=== PATIENT | male | born 1965 | race Caucasian/White ===

== ENCOUNTER 2020-12-06 13:55 | Emergency (ER) | payer OTHER, SELFPAY ==
[2020-12-06 14:18] VITALS: BP 121/74; PULSE 115; RESP 18; TEMP 37.7; O2SAT 96; BMI 37.5
--- NOTE | 2020-12-06 14:57 | CTR_ITS ---
PROCEDURE INFORMATION: Exam: CT Abdomen And Pelvis With Contrast Exam date and time: 12/06/2020 3:31 PM Age: 55 years old Clinical indication: Abdominal pain; Flank; Right; Prior surgery; Surgery type: Hernia TECHNIQUE: Imaging protocol: Computed tomography of the abdomen and pelvis with contrast. Radiation optimization: All CT scans at this facility use at least one of these dose optimization techniques: automated exposure control; mA and/or kV adjustment per patient size (includes targeted exams where dose is matched to clinical indication); or iterative reconstruction. Contrast material: OMNI 300; Contrast volume: 95 ml; Contrast route: INTRAVENOUS (IV); COMPARISON: No relevant prior studies available. RADIATION DOSE METRICS: Total DLP (mGy-cm): FINDINGS: Liver: Several tiny subcentimeter low-attenuation liver lesions are too small to confidently characterize. Mild nodular contour of the liver capsular surface. Gallbladder and bile ducts: Normal. No calcified stones. No ductal dilation. Pancreas: Normal. No ductal dilation. Spleen: Moderate splenomegaly without focal splenic mass. Adrenal glands: Normal. No mass. Kidneys and ureters: Nonobstructing right kidney stone. Negative for hydronephrosis. Stomach and bowel: Unremarkable. No obstruction. No mucosal thickening. Appendix: No evidence of appendicitis. Intraperitoneal space: Unremarkable. No free air. No significant fluid collection. Vasculature: Patent. No aneurysm. No bleeding. No dissection. Portal venous system patent. Mesenteric venous system patent. Lymph nodes: Unremarkable. No enlarged lymph nodes. Urinary bladder: Unremarkable as visualized. Reproductive: Mild prostate gland enlargement with prostate gland calcifications. Bones/joints: Grade 2 L5-S1 spondylolisthesis secondary to L5 pars defects. Severe L5-S1 disc disease. No acute fractures. No focal suspicious bone lesion. Mild superior endplate concavity of L5. Soft tissues: Small umbilical hernia contains mesenteric fat. CT/CT abdomen pelvis w con* [id number] IMPRESSION: 1. No acute findings in the abdomen or pelvis. 2. Nonobstructing right renal stone. 3. Moderate splenomegaly. Mildly nodular capsular surface of liver raises question of underlying cirrhosis. 4. Small fat containing umbilical hernia. 5. Tiny liver lesions which are too small to confidently characterize; favor benign lesions such as cysts or hemangiomas. Radiation Dose CTDIVOL = (mGy): DLP = 2015.78 (mGy-cm)
--- NOTE | 2020-12-06 15:17 | W.ED.FEVER ---
HPI - Fever General: Chief Complaint: Fever Stated Complaint: RGHT KIDNEY PAINS HIGH FEVER Time Seen by Provider: 12/06/20 14:54 Source: patient and family Mode of arrival: ambulatory Limitations: no limitations History of Present Illness: HPI Narrative: Preston is a very nice 55-year-old male comes in complaining of right flank pain and right lower quadrant pain. His symptoms started on Monday, 3 days ago and have gotten progressively worse since. He states the pain feels somewhat like a kidney stone he had in the past but not exactly the same. He denies any blood in his urine or dysuria. He has had a fever at home up to 102.9 but is not had a fever today. He is nauseated but not vomited. He denies any hematuria. Patient denies any chest pain, cough or shortness of breath. The patient states that he has a history of lymphoma but he is in remission as of 1 year ago. He denies other complaints or concerns patient's overall he feels very poorly. Associated symptoms: Reports abdominal pain, flank pain, chills and nausea; Deny chest pain, confusion, diarrhea, dysuria, extremity pain, headache(s) or vomiting Review of Systems Const: Reports: fever(s), chills, body aches, fatigue and malaise; Denies: diaphoresis Eyes: Denies: change in vision, blurry vision, photophobia, eye discomfort, eye discharge, eye redness or yellow eyes ENMT: Denies: throat pain, odynophagia, hoarseness, swelling of lips/tongue, ear or mastoid pain, ear discharge, change in hearing or nasal discharge Card: Denies: chest pain, palpitations, irregular heart rhythm, edema, lightheadedness, syncope, pre-syncope, dyspnea on exertion or orthopnea Resp: Denies: dyspnea, productive cough, non-productive cough, wheezing, hemoptysis or chest congestion GI: Reports: abdominal pain and nausea; Denies: vomiting, hematemesis, coffee ground emesis, heartburn, diarrhea, constipation, GI cramping, hematochezia or melena : Reports: flank pain; Denies: dysuria, urinary frequency, urinary urgency or hematuria Musc: Denies: neck pain, back pain, extremity pain, extremity swelling, joint pain, joint swelling, joint redness, joint warmth or joint stiffness Skin/Breast: Denies: rash, pruritus, erythema, skin pain or skin tenderness Neuro: Denies: headache(s), numbness in extremities, weakness in extremities, sensory changes, lack of coordination, difficulty walking, dizziness, vertigo, confusion, Slurred speech present or seizure-like activity Omar/Lymph: Denies: easy bruising, easy bleeding, petechiae, purpura or enlarged lymph nodes All/Imm: Denies: urticaria, throat swelling, tongue swelling, facial swelling or acute wheezing PFSH ED PFSH: Medical History Kidney stones Lymphoma in remission Physical Exam Const: COMMON NORMALS: no acute distress, patient oriented x3, no limitations and alert GENERAL APPEARANCE: cooperative HENMT: COMMON NORMALS: normocephalic, atraumatic, external ears normal, EAC's normal and Normal external nose present HEAD & SCALP: normal to inspection, normocephalic and atraumatic FACE & SINUS: normal facial exam and face symmetric NOSE: Normal external nose present and Normal nares present EXTERNAL EAR: Yes external ears normal EXTERNAL AUDITORY CANAL: EAC's normal MOUTH: Normal oral and palatal mucosa present, lip normal and tongue normal Eye: COMMON NORMALS: Equal, round and reactive pupils present and conjunctivae normal GENERAL EYE: appearance normal, both eyes and all related structures ALIGNMENT: Yes alignment normal PERIORBITAL: periorbital findings normal EYELID: eyelids normal CONJUNCTIVA: Yes conjunctivae normal SCLERA: sclerae normal PUPIL: Yes Equal, round and reactive pupils present Neck/C-Spine: COMMON NORMALS: full ROM, no lymphadenopathy, supple, no meningeal signs and no JVD GENERAL: Yes normal visual inspection and Yes trachea midline Chest: COMMONS NORMALS: normal inspection of the chest and normal palpation of entire chest wall Resp: COMMON NORMALS: normal respiratory effort, No retractions, No use of accessory muscles and clear to auscultation bilaterally EFFORT & INSPECTION: Yes able to speak in complete sentences and Yes symmetric chest movement AUSCULTATION: clear to auscultation bilaterally, no crackles, no rales, no rhonchi and no wheezes Cardio: COMMON NORMALS: no JVD, regular rate, regular rhythm, S1 normal heart sound present and S2 normal heart sound present RATE: regular rate RHYTHM: regular rhythm HEART SOUNDS: S1 normal heart sound present, S2 normal heart sound present, no click, no gallops, no murmurs and no rubs GI: COMMON NORMALS: Soft to palpation and No hepatosplenomegaly present PALPATION: Yes Soft to palpation, No Tenderness to palpation present (GI), No Guarding due to palpation present (GI), No Rigid due to palpation, Yes No hepatosplenomegaly present, No Hernia present, No Palpable mass present and No Pulsatile mass present : COMMON NORMALS: Yes no CVA tenderness BLADDER/KIDNEY EXAM: Yes no CVA tenderness Back/Pelvis: COMMON NORMALS: no CVA tenderness, thoracic and lumbar spine normal to inspection, no thoracic nor lumbar tenderness and thoraco-lumbar ROM normal Extremity: COMMON NORMALS: normal to inspection, full ROM, capillary refill normal, no joint enlargement, no clubbing, cyanosis or edema and no calf tenderness Neuro: COMMON NORMALS: patient oriented x3, CN's II-XII intact bilaterally, moves all extremities, no focal motor deficits and no sensory deficits noted SENSORIUM/ORIENTATION: Yes alert MENINGEAL SIGNS: Yes no meningeal signs SPEECH: speech normal Psych: COMMON NORMALS: mental status grossly normal, Normal thought process present, cooperative, normal affect, speech normal and activity/motor behavior normal SPEECH: Yes normal speech THOUGHT PROCESS: Normal thought process present Skin: COMMON NORMALS: no rashes or lesions noted, turgor normal, no jaundice, no petechiae and no mottling GENERAL SKIN EXAM: no rashes or lesions noted and turgor normal Course Vital Signs: Vital signs: Vital Signs Temperature 99.8 F H 12/06/20 14:18 Pulse Rate 115 H 12/06/20 14:18 Respiratory Rate 18 12/06/20 16:21 Blood Pressure 121/74 12/06/20 14:18 Pulse Oximetry 96 12/06/20 14:18 MDM - Fever MDM Narrative: Medical decision making narrative: 1654 -patient CT scan is unremarkable. I did discuss the findings directly with the radiologist who states that there is no evidence of appendicitis. The patient has an exam that is not concerning for peritonitis. He is not had a fever here although he has had at home. He is feeling better after the IV fluids I have given him and his tachycardia has resolved. His lactate is normal. His white count is normal. I see no sign of acute life-threatening infection at this time but based upon the patient's history and risk factors I am concerned that he could be developing a more severe illness. He declines observation in the hospital as I have offered him but would rather go home. I will place him on empiric antibiotics but he understands this may increase his risk of C. difficile but he still would like to go ahead with this. He is concerned as he has been so ill in the past and he understands at this time I am uncertain what we may be treating although an occult bowel infection is a possibility. He is going to follow-up with his oncologist on Monday for routine checkup and will review all this with him on that day. At this time the patient is feeling much better and is ready to go home. Lab Data: Labs: Lab Results 12/06/20 12/06/20 12/06/20 Range/Units 15:28 15:28 15:28 WBC 4.0 (4.0-10.0) 10^3/ uL RBC 4.98 (4.1-5.3) 10^6/u L Hgb 14.5 (11.7-16.6) g/dL Hct 42.3 (42.0-52.0) % MCV 84.9 (80-94) fL MCH 29.1 (28.0-34.0) pg MCHC 34.3 (30.0-36.0) g/dL RDW 14.3 (12.1-15.1) % Plt Count 58 L (130-400) 10^3/c mm MPV 11.0 H (7.4-10.4) fL Neut % (Auto) 68.6 % Lymph % (Auto) 17.5 % [place] % (Auto) 13.0 % Eos % (Auto) 0.3 % Baso % (Auto) 0.3 % Neut # (Auto) 2.74 (1.8-7.7) 10^3/u L Lymph # (Auto) 0.7 L (0.8-4.8) 10^3/u L [place] # (Auto) 0.5 (0.2-0.9) 10^3/u L Eos # (Auto) 0.0 (0.0-0.8) 10^3/u L Baso # (Auto) 0.0 (0.0-0.1) 10^3/u L Nucleated RBC % (a uto) 0 % Nucleated RBCs # 0.0 /100WBC Sodium 135 L (136-145) mmol/L Potassium 4.4 (3.5-5.1) mmol/L Chloride 102 (98-107) mmol/L Carbon Dioxide 21 L (22-29) mmol/L Anion Gap 16.4 (5-19) BUN 14 (6-20) mg/dL Creatinine 0.8 (0.7-1.2) mg/dL GFR Calculation 100.0 (90-130) mL/min Glucose 103 (65-115) mg/dL Calculated Osmolal ity 281 L (285-295) mOsm/k g Lactic Acid 1.5 (0.5-2.2) mmol/L Calcium 8.4 L (8.5-10.5) mg/dL Magnesium 2.0 (1.7-2.3) mg/dL Total Bilirubin 1.0 (0.15-1.2) mg/dL AST 62 H (0-40) U/L ALT 59 H (0-41) U/L Alkaline Phosphata se 131 H (40-130) IU/L Total Protein 6.4 L (6.6-8.7) g/dL Albumin 3.7 (3.5-5.2) g/dL Globulin 2.7 (1.3-4.6) g/dL Lipase 49 (13-60) U/L Urine Color (Yellow) Urine Appearance (CLEAR) Urine pH (5-7) Ur Specific Gravit y (1.005-1.030) Urine Protein (Negative) Urine Glucose (UA) (Normal) Urine Ketones (Negative) Urine Blood (Negative) Urine Nitrate (Negative) Urine Bilirubin (Negative) Urine Urobilinogen (Negative) mg/dL Ur Leukocyte Cecelia ase (Negative) Urine RBC (0-2) /hpf Urine WBC (0-5) /hpf Ur Squamous Epith Cells (0-5) /hpf Amorphous Sediment Urine Bacteria (NONE) /hpf Urine Mucus /hpf 12/06/20 Range/Units 15:28 WBC (4.0-10.0) 10^3/ uL RBC (4.1-5.3) 10^6/u L Hgb (11.7-16.6) g/dL Hct (42.0-52.0) % MCV (80-94) fL MCH (28.0-34.0) pg MCHC (30.0-36.0) g/dL RDW (12.1-15.1) % Plt Count (130-400) 10^3/c mm MPV (7.4-10.4) fL Neut % (Auto) % Lymph % (Auto) % [place] % (Auto) % Eos % (Auto) % Baso % (Auto) % Neut # (Auto) (1.8-7.7) 10^3/u L Lymph # (Auto) (0.8-4.8) 10^3/u L [place] # (Auto) (0.2-0.9) 10^3/u L Eos # (Auto) (0.0-0.8) 10^3/u L Baso # (Auto) (0.0-0.1) 10^3/u L Nucleated RBC % (a uto) % Nucleated RBCs # /100WBC Sodium (136-145) mmol/L Potassium (3.5-5.1) mmol/L Chloride (98-107) mmol/L Carbon Dioxide (22-29) mmol/L Anion Gap (5-19) BUN (6-20) mg/dL Creatinine (0.7-1.2) mg/dL GFR Calculation (90-130) mL/min Glucose (65-115) mg/dL Calculated Osmolal ity (285-295) mOsm/k g Lactic Acid (0.5-2.2) mmol/L Calcium (8.5-10.5) mg/dL Magnesium (1.7-2.3) mg/dL Total Bilirubin (0.15-1.2) mg/dL AST (0-40) U/L ALT (0-41) U/L Alkaline Phosphata se (40-130) IU/L Total Protein (6.6-8.7) g/dL Albumin (3.5-5.2) g/dL Globulin (1.3-4.6) g/dL Lipase (13-60) U/L Urine Color Dark yellow (Yellow) Urine Appearance Clear (CLEAR) Urine pH 6 (5-7) Ur Specific Gravit y 1.025 (1.005-1.030) Urine Protein Trace (Negative) Urine Glucose (UA) Norm (Normal) Urine Ketones 1+ H (Negative) Urine Blood 2+ H (Negative) Urine Nitrate Negative (Negative) Urine Bilirubin Neg (Negative) Urine Urobilinogen 8 H (Negative) mg/dL Ur Leukocyte Cecelia ase Negative (Negative) Urine RBC 0-4 H (0-2) /hpf Urine WBC None (0-5) /hpf Ur Squamous Epith Cells None (0-5) /hpf Amorphous Sediment Not Reportable Urine Bacteria Trace (NONE) /hpf Urine Mucus 2+ /hpf Imaging Data^: CT Abd/Pel: Radiologist's impression: [id number] [id number] [address] Scan Report Signed with Addenda Patient: Preston Cope Unit #: [id number] : 1965 Age/Sex: 55 / M ADM Date: 12/06/20 Loc: ER Room/Bed: Attending Dr: Ordering Provider/Ordering MD: Bria Garcia DO Date of Service: 12/06/20 Procedure(s): CT abdomen pelvis w con* [id number] Accession Number(s): [id number] Report Number: [id number]/CT abdomen pelvis w con* [id number] Findings were discussed with Bria Garcia at 12/06/2020 4:39 PM CDT. The appendix is visible in the right lower quadrant the abdomen. It has normal diameter. There is no abnormal enhancement features. There is no focal inflammatory soft tissue changes in the right lower quadrant. Radiation Dose CTDIVOL = (mGy): DLP = 2016.78 (mGy-cm) Addendum Dictated By: Forest Bland Addendum Signed By: Forest Bland Signed Date/Time: 12/06/20 1641 Addendum Cosigned By: PROCEDURE INFORMATION: Exam: CT Abdomen And Pelvis With Contrast Exam date and time: 12/06/2020 3:31 PM Age: 55 years old Clinical indication: Abdominal pain; Flank; Right; Prior surgery; Surgery type: Hernia TECHNIQUE: Imaging protocol: Computed tomography of the abdomen and pelvis with contrast. Radiation optimization: All CT scans at this facility use at least one of these dose optimization techniques: automated exposure control; mA and/or kV adjustment per patient size (includes targeted exams where dose is matched to clinical indication); or iterative reconstruction. Contrast material: OMNI 300; Contrast volume: 95 ml; Contrast route: INTRAVENOUS (IV); COMPARISON: No relevant prior studies available. RADIATION DOSE METRICS: Total DLP (mGy-cm): 2015.78 FINDINGS: Liver: Several tiny subcentimeter low-attenuation liver lesions are too small to confidently characterize. Mild nodular contour of the liver capsular surface. Gallbladder and bile ducts: Normal. No calcified stones. No ductal dilation. Pancreas: Normal. No ductal dilation. Spleen: Moderate splenomegaly without focal splenic mass. Adrenal glands: Normal. No mass. Kidneys and ureters: Nonobstructing right kidney stone. Negative for hydronephrosis. Stomach and bowel: Unremarkable. No obstruction. No mucosal thickening. Appendix: No evidence of appendicitis. Intraperitoneal space: Unremarkable. No free air. No significant fluid collection. Vasculature: Patent. No aneurysm. No bleeding. No dissection. Portal venous system patent. Mesenteric venous system patent. Lymph nodes: Unremarkable. No enlarged lymph nodes. Urinary bladder: Unremarkable as visualized. Reproductive: Mild prostate gland enlargement with prostate gland calcifications. Bones/joints: Grade 2 L5-S1 spondylolisthesis secondary to L5 pars defects. Severe L5-S1 disc disease. No acute fractures. No focal suspicious bone lesion. Mild superior endplate concavity of L5. Soft tissues: Small umbilical hernia contains mesenteric fat. CT/CT abdomen pelvis w con* [id number] IMPRESSION: 1. No acute findings in the abdomen or pelvis. 2. Nonobstructing right renal stone. 3. Moderate splenomegaly. Mildly nodular capsular surface of liver raises question of underlying cirrhosis. 4. Small fat containing umbilical hernia. 5. Tiny liver lesions which are too small to confidently characterize; favor benign lesions such as cysts or hemangiomas. Radiation Dose CTDIVOL = (mGy): DLP = 2016.78 (mGy-cm) Dictated By: Forest Bland Signed By: Forest Bland Signed Date/Time: 12/06/201607 DD/ 07 Discharge Plan Discharge Patient Disposition: Home Clinical Impression: Fever of unknown origin, Abdominal pain of unknown cause Condition: Stable Prescriptions: New Augmentin 875-125 mg tablet 1 tab PO BID 10 Days Qty: 20 RF: 0 No Action Active B Complex 1 tab PO DAILY RF: 0 fluconazole 200 mg tablet 200 mg PO BEDTIME RF: 0 Tylenol Extra Strength 500 mg Tablet 1,000 mg PO PRN RF: 0 tamsulosin 0.4 mg capsule 0.4 mg PO BEDTIME RF: 0 gabapentin 300 mg capsule 300 mg PO BID RF: 0 Discharge Orders: Discharge ED (Routine); Ordered 12/06/20 Ordered By: Bria Garcia Discharge Diet: Usual diet Discharge Activity: Increase activity as tolerated Patient Instructions: Abdominal Pain (ED) Activity Restrictions/Additional Instructions: Please return to the ER immediately for any of the signs or symptoms listed on your discharge instruction sheets, worsening/changing of your symptoms, you are not getting better as quickly as expected, or for ANY other cause or concerns. A cause of your fever and abdominal pain has not been found. It is possible that you are still developing appendicitis or another severe even a life-threatening cause for your pain that has not been discovered yet. If you become weak, have return of your fever, he began to vomit, you have diarrhea, blood in your stools, or your abdominal pain gets worse please return to the ER immediately for recheck. Take the antibiotics as I have prescribed to you and be certain to follow-up with your doctor on Monday as scheduled. Coding Level of Care Code ED Denture Contour Wire Specialist for Hai Fwd Exam Comprehensive
[2020-12-06 15:41] LABS: Basophils % 0.3 %; Eosinophils % 0.3 %; Hematocrit 42.3 % (42.0-52.0); Hemoglobin 14.5 g/dL (11.7-16.6); Lymphocytes # 0.7 10^3/uL (0.8-4.8); Lymphocytes % 17.5 %; Mean Corpuscular HGB Conc 34.3 g/dL (30.0-36.0); Mean Corpuscular Hemoglobin 29.1 pg (28.0-34.0); Mean Corpuscular Volume 84.9 fL (80-94); Monocytes # 0.5 10^3/uL (0.2-0.9); Neutrophils # 2.74 10^3/uL (1.8-7.7); Neutrophils % 68.6 %; Nucleated Red Blood Cells % 0 %; Platelet Count 58 10^3/cmm (130-400); Red Blood Count 4.98 10^6/uL (4.1-5.3); Red Cell Distribution Width 14.3 % (12.1-15.1)
[2020-12-06] MEDS: iohexol 300 mg/mL 100 mL Btl IV (15:44)
[2020-12-06 16:03] LABS: Alanine Aminotransferase 59 U/L (0-41); Albumin Level 3.7 g/dL (3.5-5.2); Alkaline Phosphatase 131 IU/L (40-130); Anion Gap 16.4 (5-19); Aspartate Amino Transferase 62 U/L (0-40); Blood Urea Nitrogen 14 mg/dL (6-20); Calcium 8.4 mg/dL (8.5-10.5); Carbon Dioxide 21 mmol/L (22-29); Chloride 102 mmol/L (98-107); Globulin 2.7 g/dL (1.3-4.6); Glucose 103 mg/dL (65-115); Lactic Sepsis W/Reflex 1.5 mmol/L (0.5-2.2); Lipase 49 U/L (13-60); Osmolality Calculated 281 mOsm/kg (285-295); Potassium 4.4 mmol/L (3.5-5.1); Sodium 135 mmol/L (136-145); Total Protein 6.4 g/dL (6.6-8.7)
[2020-12-06 16:04] LABS: Add Urine Microscopic? YES; Bilirubin Urine Neg (Negative); Blood Urine 2+ (Negative); Glucose Urine UA Norm (Normal); Ketones Urine 1+ (Negative); Leukocyte Esterase Urine Negative (Negative); Nitrate Urine Negative (Negative); Protein Urine Trace (Negative); Specific Gravity, Urine 1.025 (1.005-1.030); Urine Appearance Clear (CLEAR); Urine Color Dark Yellow (Yellow); Urobilinogen Urine 8 mg/dL (Negative); pH Urine 6 (5-7)
[2020-12-06 16:10] LABS: RBC Urine 0-4 /hpf (0-2)
[2020-12-06 16:11] LABS: Add Urine Culture? No; Bacteria Urine TRACE /hpf; Mucus Urine 2+ /hpf
[2020-12-06 16:21] VITALS: RESP 18
[2020-12-06] MEDS: morphine 4 mg/mL SDV 1 mL IVP (16:21)
[2020-12-06] MEDS: ondansetron 2 mg/ML SDV 2 mL 4 MG IVP (16:22)
[2020-12-06] MEDS: sodium chloride 0.9% 1,000 ML 999 ML IV ×2 (16:23→17:40)
--- NOTE | 2020-12-06 16:41 | PC.PHAR ---
PT STATES HE HAS BEEN OFF OF ELIQUIS FOR A COUPLE MONTHS-
[2020-12-06] MEDS: cefTRIAXone 1,000 MG in sodium chloride 0.9% (plus) 50 ML 100 MG IV (17:20)
[2020-12-06] MEDS: piperacillin-tazobactam 3.375 GM in sodium chloride 0.9% (plus) 50 ML IV (17:30)
[2020-12-06 18:38] VITALS: BP 112/72; PULSE 92; O2SAT 94
[2020-12-06 18:39] VITALS: BP 112/72; PULSE 92; RESP 18; O2SAT 94
== END 2020-12-06 18:40 | disposition home or self-care (01) ==
PROVIDERS: Nurse Practitioner Family; Emergency Provider Emergency Medicine
DX: R50.9 Fever, unspecified (principal); R10.9 Unspecified abdominal pain; Z87.442 Personal history of urinary calculi; Z85.72 Personal history of non-Hodgkin lymphomas
CPT/HCPCS: 74177; 80053; 81001; 83605; 83690; 83735; 85025; 96361; 96365; 96375; 99284; J0696; J2270; J2405; J2543; J7030; Q9967

== ENCOUNTER 2021-11-22 03:57 | Emergency (ER) | payer OTHER, SELFPAY ==
[2021-11-22 04:00] VITALS: BP 150/89; PULSE 106; RESP 17; TEMP 36.3; O2SAT 96; BMI 37.5
--- NOTE | 2021-11-22 04:49 | W.ED.GENADLT ---
HPI - General Adult General: Chief complaint: General Medical Stated complaint: blocked cath Time Seen by Provider: 11/22/21 04:15 Source: patient History of Present Illness: 56-year-old male who has had a Redman catheter since surgery last week. He says it is to be DC'd on Monday. He awoke with pressure in his belly, and noted that he had very little drainage. He had clogged the catheter once yesterday, and flushed it out without much success. He has had to come in for a block Redman prior, and did not want to experience that pain again. No fever. Onset (ago): hour(s) Location: pelvis Radiation: non-radiation Severity: moderate Quality: aching Pain Consistency: constant Exacerbating factors: none Associated symptoms: Reports nausea; Deny chest pain, confusion, cough, dyspnea, fevers/chills, palpitations, short of breath or vomiting Treatments prior to arrival: other Review of Systems Const: Denies: fever(s) Card: Denies: chest pain or palpitations Resp: Denies: dyspnea or productive cough GI: Reports: nausea; Denies: vomiting : Reports: difficulty urinating; Denies: flank pain Musc: Denies: back pain Neuro: Denies: confusion PFSH ED PFSH: Medical History Kidney stones Lymphoma in remission Physical Exam Const: GENERAL APPEARANCE: cooperative; not frail appearing HENMT: COMMON NORMALS: normocephalic HEAD & SCALP: normocephalic Eye: COMMON NORMALS: Equal, round and reactive pupils present and EOMs intact bilaterally PUPIL: Yes Equal, round and reactive pupils present Chest: COMMONS NORMALS: normal inspection of the chest Cardio: COMMON NORMALS: regular rate and regular rhythm RATE: regular rate RHYTHM: regular rhythm GI: COMMON NORMALS: Soft to palpation INSPECTION: Yes abdominal distension (Mild) PALPATION: Yes Soft to palpation and Yes Tenderness to palpation present (GI) (Mild suprapubic) : COMMON NORMALS: Yes no CVA tenderness BLADDER/KIDNEY EXAM: Yes no CVA tenderness Back/Pelvis: COMMON NORMALS: no CVA tenderness Extremity: GENERAL: Yes edema Neuro: ARIS COMA SCALE: document GCS findings Aris coma scale eye opening: Spontaneous Aris coma scale verbal response: Orientated Donnellson coma scale motor response: Obey commands Aris coma scale total score: 15 Skin: COMMON NORMALS: no rashes or lesions noted GENERAL SKIN EXAM: no rashes or lesions noted Course Vital Signs: Vital signs: Vital Signs Temperature 97.4 F L 11/22/21 04:00 Pulse Rate 106 H 11/22/21 04:00 Respiratory Rate 16 11/22/21 04:51 Blood Pressure 115/83 11/22/21 04:51 Pulse Oximetry 94 11/22/21 04:51 [facility] - General Adult Medical Decision Making 56-year-old male with a Redman catheter problem. Attempt was made to flush the catheter, to no avail. Redman was removed, it was found to be caked with calcium, and a clot. New Redman placed with immediate return of 1400 mL of yellow urine. Urine is in lab. Lab Data Laboratory Results Urine Color Yellow (Yellow) 11/22/21 04:45 Urine Appearance Sl hazy (CLEAR) 11/22/21 04:45 Urine pH 6 (5-7) 11/22/21 04:45 Ur Specific Viola 1.025 (1.005-1.030) 11/22/21 04:45 Urine Protein Neg (Negative) 11/22/21 04:45 Urine Glucose (UA) Norm (Normal) 11/22/21 04:45 Urine Ketones Negative (Negative) 11/22/21 04:45 Urine Blood 3+ (Negative) H 11/22/21 04:45 Urine Nitrate Negative (Negative) 11/22/21 04:45 Urine Bilirubin Neg (Negative) 11/22/21 04:45 Urine Urobilinogen Norm mg/dL (Negative) 11/22/21 04:45 Ur Leukocyte Esterase Negative (Negative) 11/22/21 04:45 Urine RBC >100 /hpf (0-2) H 11/22/21 04:45 Urine WBC 0-4 /hpf (0-5) H 11/22/21 04:45 Ur Squamous Epith Cells 0-4 /hpf (0-5) H 11/22/21 04:45 Amorphous Sediment Not Reportable 11/22/21 04:45 Urine Bacteria 1+ /hpf (NONE) H 11/22/21 04:45 Discharge Plan Discharge Patient Disposition: Home Clinical Impression: Complication of Redman catheter Qualifiers: Encounter type: initial encounter Qualified Code(s): T83.9XXA - Unspecified complication of genitourinary prosthetic device, implant and graft, initial encounter Condition: Stable Prescriptions: No Action Active B Complex 1 tab PO DAILY 0RF fluconazole 200 mg tablet 200 mg PO BEDTIME 0RF Tylenol Extra Strength 500 mg Tablet 1,000 mg PO PRN 0RF tamsulosin 0.4 mg capsule 0.4 mg PO BEDTIME 0RF gabapentin 300 mg capsule 300 mg PO BID 0RF Discharge Orders: Discharge ED (Routine); Ordered 11/22/21 Ordered By: Scott Riley Discharge Diet: Advance as tolerated Discharge Activity: Increase activity as tolerated Patient Instructions: Urinary Retention in Men (ED), Redman Catheter Placement and Care (ED) Activity Restrictions/Additional Instructions: Return for fever, worsening pain, blood in the catheter, mental status changes, any other concerning symptoms. Coding Level of Care Code ED Multisensor Intelligence Officer for Hai Abreu Exam Comprehensive
[2021-11-22 04:51] VITALS: BP 115/83; RESP 16; O2SAT 94
[2021-11-22 05:23] VITALS: BP 115/83; PULSE 106; RESP 16; O2SAT 94
[2021-11-22 05:25] LABS: Add Urine Microscopic? YES; Bacteria Urine 1+ /hpf; Bilirubin Urine Neg (Negative); Blood Urine 3+ (Negative); Glucose Urine UA Norm (Normal); Ketones Urine Negative (Negative); Leukocyte Esterase Urine Negative (Negative); Nitrate Urine Negative (Negative); Protein Urine Neg (Negative); RBC Urine >100 /hpf (0-2); Specific Gravity, Urine 1.025 (1.005-1.030); Squamous Epithelial Cell Urine 0-4 /hpf (0-5); Urine Appearance SL Hazy (CLEAR); Urine Color Yellow (Yellow); Urobilinogen Urine Norm (Negative); WBC Urine 0-4 /hpf (0-5); pH Urine 6 (5-7)
[2021-11-22 05:26] LABS: Add Urine Culture? Yes
== END 2021-11-22 05:44 | disposition home or self-care (01) ==
PROVIDERS: Emergency Provider Emergency Medicine
DX: T83.098A Other mechanical complication of other urinary catheter, initial encounter (principal)
CPT/HCPCS: 51702; 81001; 87086; 99283

== ENCOUNTER → 2023-02-27 10:04 | Outpatient (BNVA) | payer OTHER, SELFPAY | PROVIDERS: Visit Provider Emergency Medicine | DX: R39.9 Unspecified symptoms and signs involving the genitourinary system (principal); N39.0 Urinary tract infection, site not specified | CPT/HCPCS: 81000; 87077; 87086; 87184 ==

== ENCOUNTER → 2023-03-17 12:41 | Outpatient (BNVA) | payer OTHER, SELFPAY | PROVIDERS: Visit Provider Registered Nurse Neonatal Intensive Care | DX: R39.15 Urgency of urination (principal) | CPT/HCPCS: 81000 ==

== ENCOUNTER → 2024-03-11 14:15 | Outpatient (BNVA) | payer OTHER, SELFPAY | PROVIDERS: Visit Provider Nurse Practitioner | DX: R39.9 Unspecified symptoms and signs involving the genitourinary system (principal) | CPT/HCPCS: 81000; 87086 ==

== ENCOUNTER → 2024-11-01 13:55 | Outpatient (BNVA) | payer OTHER, SELFPAY | PROVIDERS: Visit Provider Emergency Medicine | DX: R39.9 Unspecified symptoms and signs involving the genitourinary system (principal) | CPT/HCPCS: 81000; 87086 ==

== ENCOUNTER → 2025-03-03 12:31 | Outpatient (BNVA) | payer OTHER, SELFPAY | PROVIDERS: Visit Provider Emergency Medicine | DX: J02.9 Acute pharyngitis, unspecified (principal) | CPT/HCPCS: 87071; 87880 ==

== ENCOUNTER 2025-06-12 13:13 | Emergency (ER) | payer OTHER, SELFPAY ==
[2025-06-12 13:20] VITALS: BP 136/89; PULSE 64; RESP 20; TEMP 36.6; O2SAT 96
--- OUTSIDE RECORDS SUMMARY | 2025-06-12 13:21 | XMS_ITS ---
Author Organization [facility] Address [address] [place] [address] Care Team Providers Care Traffic Observer Name Role Phone Jamal Zelaya MD Primary Care Provider [phone] Active Problems Problem Noted Date Diagnosed Date Hydronephrosis of right kidney 03/05/2025 Ureteral stricture, right 03/05/2025 Overview (03/05/2025): 02/2025 hospitalization for stent placement Hx of renal calculi 03/04/2025 Overview (03/04/2025): 12/2024 Elevated LFTs 03/04/2025 Thrombocytopenia 03/04/2025 Gastritis 02/03/2025 Overview (03/05/2025): 02/03/2025 EGD: Mild inflammation characterized by erosions and erythema was found in the gastric antrum Morbid obesity with body mass index of 40.0-49.9 2024 Portal hypertensive gastropathy 08/01/2023 Overview (02/03/2025): 02/03/2025 EGD 07/2023 EGD Osteoporosis without current pathological fractu re 04/20/2022 S/P ORIF (10/27/21) Bicondyla r tibial plateau fracture, right, closed 10/29/2021 Closed compression fracture of L1 vertebra 09/09 Overview (11/09/2021): 09/09/2021 Chronic pain of both shoulders- 02/2020 s/p chemo 12/27/2020 Insomnia due to medical condition 12/21/2020 Chronic fatigue since chemo 12/21/2020 Impaired functional mobility, balance, gait, and endurance 12/21/2020 Vitamin D deficiency 07/16/2020 BPH with obstruction/lower urinary tract symptom s 06/06/2020 Paresthesia of both hands/feet 06/04/2020 Mediastinal adenopathy 04/08/2020 History of DVT (deep vein th rombosis)-02/28/2020-right popliteal vein 02/28/2020 Splenomegaly 02/06/2020 H/O Clostridium difficile infection 01/19/2020 Cirrhosis of liver not due to alcohol 01/19/2020 Nodule of left lung 11/29/2019 Esophagitis, [place] grade C 09/17/2019 Esophageal varices without bleeding 09/17/2019 Overview (02/03/2025): 02/03/2025 Grade I esophageal varices 11/202324 Grade I esophageal varices. 05/202323 Grade II varices middle third o esophagus and lower third of the esophagus 03/202323 Grade II and large (> 5 mm) esophageal varices. 03/202222 Grade II varices were found in the middle third and in the lower third of the esophagus. Large B-cell lymphoma 09/07/2019 Overview (01/13/2021): 08/2019 L tonsil Former smoker 09/04/2019 Hx of adenomatous polyp of colon 04/18/2019 Overview (11/26/2020): 03/2019 Transverse colon - adenomatous polyp. Descending colon, polyp - adenomatous polyp. Rectum - adenomatous polyp Venous insufficiency of both lower extremities 0 04/11/2019 Family history of hemochromatosis 02/07/2019 Polyarthralgia 02/07/2019 Hypogonadism in male 02/07/2019 DDD (degenerative disc disease), lumbar 02/08/20 19 Current Treatment and Therapy Plans No current plan information found. Past Treatment and Therapy Plans No past plan information found. Lifetime Dose Tracking * Chemical Lifetime Dose Automatic Entry Manual Entr y doxorubicin 272.404 mg/m2 (764 mg) 0 mg/m2 (0 mg) 272 .404 mg/m2 (764 mg) Effective Dose 213.87 mSv 159.67 mSv 54.2 mSv Total DLP 18,193.7 DLP 13,310.7 DLP 4,883 DLP CTDIvol Max 305.6 mGy 227.2 mGy 78.4 mGy CTDIvol Min 285.39 mGy 206.99 mGy 78.4 mGy Resolved Problems Problem Noted Date Diagnosed Date Resolved Date Portal hypertension 03/05/2025 03/05/20 25 Right flank discomfort 03/04/202503/05 Hydronephrosis 03/04/2025 03/05/2025 Hx of gastroesophageal reflux (GERD) 03/04/2025 03/05/2025 UTI (urinary tract infection) 03/04/2025 05/22/2025 Recurrent urinary tract infection 11/13/2024 03/05/2025 Elevated AST (SGOT) 2024 03/05/20 25 Muscle spasm 10/29/2021 03/05/2025 Urinary retention 10/29/2021 2024 Closed bicondylar fracture o f right tibial plateau 10/27/2021 11/09/2021 Low HDL (under 40) 06/05/2020 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 03/3 Debility 02/13/2020 06/04/2020 Overview (11/25/2020): Related to neutropenic fever, cryptococcal fungemia, C diff colitisa Cognitive impairment 02/13/2020 024 Ascites 02/02/2020 06/04/2020 Sepsis 01/19/2020 02/28/2020 Anemia due to chemotherapy 10/17/2019 1 08/06/2019 NAFLD (nonalcoholic fatty liver disease) 09/18/2019 06/06/2020 Admission for chemotherapy 09/18/2019 1 08/04/2019 Gastric ulcer without hemorr cecelia or perforation x 2 09/17/2019 03/05/2025 Overview (08/01/2023): 2023 EGD 2019 EGD Hodgkin lymphoma of lymph nodes of neck 09/07/2019 09/07/2019 Overview (11/25/2020): diffuse large B-cell lymphoma Tonsillar mass 09/04/2019 09/18/2019 Tonsil asymmetry 09/04/2019 09/18/2019 Hyperglycemia 07/31/2017 2024 Umbilical hernia without obs truction and without gangrene 04/04/2017 02/07/2019 Severe obesity (BMI 35.0-39. 9) with comorbidity 04/04/2017 2024 Elevated liver enzymes 07/31/200106/04 Fever 02/29/2020 Pancytopenia due to chemotherapy 2024
--- OUTSIDE RECORDS SUMMARY | 2025-06-12 13:21 | XMS_ITS | Encounter Summary ---
Author Organization [facility] Address [address] [place] [address] Care Team Providers Care Credit Card Clerk Name Role Phone Jamal Zelaya MD Primary Care Provider [phone] Encounter Details Date Type Department Care Team (Latest Contact Info) Description 09/04/2005 Outpatient Historical [facility]- [facility] [place] [address] [place] [address] Edwinat Carmen Mcmahon, NAIL MACHINE OPERATOR [address] [place] [address] FLU W RESP MANIFEST NEC (Primary Dx) Social History Tobacco Use Types Packs/Day Years Used Date Smoking Tobacco: Never Assessed Sex and Gender Information Value Date Recorded Sex Assigned at Not on file Legal Sex Male 6:13 AM MEDICAL SCRIBE Gender Identity Not on file Sexual Orientation Not on file documented as of this encounter Plan of Treatment Not on file documented as of this encounter Visit Diagnoses Diagnosis Influenza with other respiratory manifestations- Primary documented in this encounter Additional Health Concerns Infection Onset Date Last Indicated Resolved Time R/O COVID-19 01/18/2020 01/19/2020 01/19/2020 1:08 AM CDT C Diff 01/19/2020 01/19/2020 03/19/2020 8:09 PM CDT R/O COVID-19 12/11/2020 12/11/2020 12/11/2020 9:07 AM CDT R/O GI Pathogen 12/11/2020 12/11/2020 12/12/2020 4 :09 PM CDT documented as of this encounter Care Teams Credit Card Clerk Relationship Specialty Start Date End Date Jamal Zelaya MD [address] [phone] PCP - General Family Practice 02/07/19 documented as of this encounter
--- OUTSIDE RECORDS SUMMARY | 2025-06-12 13:21 | XMS_ITS | Encounter Summary ---
Author Organization [facility] Address [address] [place] [address] Care Team Providers Care Credit Front Office Developer Name Role Phone Jamal Zelaya MD Primary Care Provider [phone] Encounter Details Date Type Department Care Team (Latest Contact Info) Description 01/18/2002 Outpatient Historical [facility] Cara Ross MD ABNORMAL LIVER FUNCTION STUDY (Primary Dx) Social History Tobacco Use Types Packs/Day Years Used Date Smoking Tobacco: Never Assessed Sex and Gender Information Value Date Recorded Sex Assigned at Not on file Legal Sex Male 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 MECHANIC Gender Identity Not on file Sexual Orientation Not on file documented as of this encounter Plan of Treatment Not on file documented as of this encounter Visit Diagnoses Diagnosis Nonspecific abnormal results of liver function study- Primary documented in this encounter Additional Health Concerns Infection Onset Date Last Indicated Resolved Time R/O COVID-19 01/18/2020 01/19/2020 01/19/2020 1:08 AM CDT C Diff 01/19/2020 01/19/2020 03/19/2020 8:09 PM CDT R/O COVID-19 12/11/2020 12/11/2020 12/11/2020 9:07 AM CDT R/O GI Pathogen 12/11/2020 12/11/2020 12/12/2020 4 :09 PM CDT documented as of this encounter Care Teams Credit Front Office Developer Relationship Specialty Start Date End Date Jamal Zelaya MD [address] [phone] PCP - General Family Practice 02/07/19 documented as of this encounter
--- OUTSIDE RECORDS SUMMARY | 2025-06-12 13:21 | XMS_ITS | Encounter Summary ---
Author Organization [facility] Address [address] [place] [address] Care Team Providers Care Psychiatric Tech Name Role Phone Jamal Zelaya MD Primary Care Provider [phone] Encounter Details Date Type Department Care Team (Latest Contact Info) Description 03/01/2002 Outpatient Historical HIS [facility] Cara Ross MD VIR HEP NEC W/O COMA W OTH VIR HEPA (Primary Dx) Social History Tobacco Use Types Packs/Day Years Used Date Smoking Tobacco: Never Assessed Sex and Gender Information Value Date Recorded Sex Assigned at Not on file Legal Sex Male 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 Gender Identity Not on file Sexual Orientation Not on file documented as of this encounter Plan of Treatment Not on file documented as of this encounter Visit Diagnoses Diagnosis Other specified viral hepatitis without mention of hepatic coma(070.59)- Primary Other specified viral hepatitis without mention of hepatic coma documented in this encounter Additional Health Concerns Infection Onset Date Last Indicated Resolved Time R/O COVID-19 01/18/2020 01/19/2020 01/19/2020 1:08 AM CDT C Diff 01/19/2020 01/19/2020 03/19/2020 8:09 PM CDT R/O COVID-19 12/11/2020 12/11/2020 12/11/2020 9:07 AM CDT R/O GI Pathogen 12/11/2020 12/11/2020 12/12/2020 4 :09 PM CDT documented as of this encounter Care Teams Psychiatric Tech Relationship Specialty Start Date End Date Jamal Zelaya MD [address] [facility] [address] [place] [phone] PCP - General Family Practice 02/07/19 documented as of this encounter
--- OUTSIDE RECORDS SUMMARY | 2025-06-12 13:21 | XMS_ITS | Clinical Summary ---
Author Organization [facility] Address [address] [place] [address] Care Team Providers Care Carriage Dogger Name Role Phone Jamal Zelaya MD Primary Care Provider [phone] Allergies No known active allergies Medications acetaminophen (TYLENOL) 325 mg tablet Take 2 Tablets (650 mg) by mouth every 6 hours as needed for Other (See Comment) (See admin instructions) . 0 Active vitamin B complex (B COMPLEX ORAL) Take by mouth 2 times daily. Active tamsulosin (FLOMAX) 0.4 mg capsuleIndicatio ns:Benign prostatic hyperplasia, unspecified whether lower urinary tract symptoms present Take 1-2 Capsules (0.4-0.8 mg) by mouth daily. 1/2 hour after evening meal 180 Capsule 3 1 Active gabapentin (NEURONTIN) 300 mg capsule TAKE ONE CAPSULE BY MOUTH AT BEDTIME FOR 3 NIGHTS, THEN INCREASE TO 1 CAPSULE TWICE DAILY 60 Capsule 1 Active fluconazole (DIFLUCAN) 200 mg tablet Take 200 mg by mouth daily. Active meloxicam (MOBIC) 7.5 mg tabletIndication s:DDD (degenerative disc disease), lumbar,Chronic pain of both shoulders Take 1 Tablet (7.5 mg) by mouth 2 times daily with meals. 60 Tablet 3 1 Active traMADoL (ULTRAM) 50 mg tabletIndication s:DDD (degenerative disc disease), lumbar,Chronic pain of both shoulders,Large B-cell lymphoma (CMS/HCC) Take 1 Tablet (50 mg) by mouth 2 times daily. 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 Mediastinal adenopathy 04/08/2020 History of DVT (deep vein th rombosis)-02/28/2020-right popliteal vein 02/28/2020 Cognitive impairment 02/13/2020 Splenomegaly 02/06/2020 H/O Clostridium difficile infection 01/19/2020 Sepsis 01/19/2020 Cirrhosis of liver not due to alcohol 01/19/2020 Nodule of left lung 11/29/2019 Esophageal varices without bleeding 09/17/2019 Esophagitis, [place] grade C 09/17/2019 Gastric ulcer without hemorrhage or perforation x 2 09/17/2019 Large B-cell lymphoma 09/07/2019 Overview (09/07/2019): 08/2019 L tonsil Former smoker 09/04/2019 Hx of adenomatous polyp of colon 04/18/2019 Overview (04/18/2019): 03/2019 Transverse colon - adenomatous polyp. Descending colon, polyp - adenomatous polyp. Rectum - adenomatous polyp Venous insufficiency of both lower extremities 0 04/11/2019 Family history of hemochromatosis 02/07/2019 Hypogonadism in male 02/07/2019 Polyarthralgia 02/07/2019 DDD (degenerative disc disease), lumbar 02/08/20 19 Hyperglycemia 07/31/2017 Severe obesity (BMI 35.0-39.9) with comorbidity 04/04/2017 Pancytopenia due to chemotherapy Resolved Problems Problem Noted Date Diagnosed Date Resolved Date Debility 02/13/2020 06/04/2020 Overview (02/13/2020): Related to neutropenic fever, cryptococcal fungemia, C diff colitisa Ascites 02/02/2020 06/04/2020 Anemia due to chemotherapy 10/17/2019 1 08/06/2019 NAFLD (nonalcoholic fatty liver disease) 09/18/2019 06/06/2020 Admission for chemotherapy 09/18/2019 1 08/04/2019 Hodgkin lymphoma of lymph nodes of neck 09/07/2019 09/07/2019 Overview (09/07/2019): diffuse large B-cell lymphoma Tonsillar mass 09/04/2019 09/18/2019 Tonsil asymmetry 09/04/2019 09/18/2019 Umbilical hernia without obs truction and without gangrene 04/04/2017 02/07/2019 Elevated liver enzymes 07/31/200106/04 Immunizations Immunization Administration Dates Next Due ([employer])(12 YR UP) COVID-19 VACCINE - EMERGENCY USE AUTHORIZATION, MRNA, [id number](PF) 30 MCG/0.3 ML IM SUSP 09/27/2020,09/06/2020 Family History Medical History Relation Name Comments Diabetes Father Preston Cope Heart Disease Father Preston Cope Hemochromatosis Father Preston Cope Liver Disease Father Preston Cope Tuberculosis Maternal Grandfather No Known Problems Maternal Grandmother Healthy Mother No Known Problems Paternal Grandfather Heart Disease Paternal Grandmother [place] Cope Hypertension Paternal Grandmother [place] Cope Colon Cancer Neg Hx Relation Name Status Comments Father Preston Cope Alive Maternal Grandfather Maternal Grandmother Mother Alive Paternal Grandfather Paternal Grandmother [place] Cope Sister 1 Alive Sister 2 Alive Social History Tobacco Use Types Packs/Day Years Used Date Smoking Tobacco: Former Cigarettes 0.5 5 0 09/12/1981 - 09/12/1986 Smokeless Tobacco: Never Tobacco Cessation:Counseling Given: Yes Alcohol Use Standard Drinks/Week Comments Not Currently 0 (1 standard drink = 0.6 oz pur e alcohol) rare Financial Resource Strain Answer Date R ecorded How hard is it for you to pa y for the very basics like food, housing, medical care, and heating? Not hard at all 10/14/2019 Food Insecurity Answer Date Recorded Within the past 12 months, y ou worried that your food would run out before you got the money to buy more. Patient declined Within the past 12 months, t he food you bought just didn't last and you didn't have money to get more. Patient declined Sex and Gender Information Value Date Recorded Sex Assigned at Not on file Legal Sex Male 6:13 AM CALL OUT OPERATOR Gender Identity Not on file Sexual Orientation Not on file Last Filed Vital Signs Vital Sign Reading Time Taken Comments Blood Pressure 110/80 12/21/2020 10:47 AM CDT Pulse 92 12/21/2020 10:47 AM CDT Temperature 36.3 C (97.4 F) 12/21/2020 10:47 AM CDT Respiratory Rate 18 12/15/2020 8:05 AM CDT Oxygen Saturation 94% 12/21/2020 10: 47 AM CDT Inhaled Oxygen Concentration - - Weight 132.4 kg (291 lb 12.8 oz) 2020 10:47 AM CDT Height 190.5 cm (6' 3 ) 12/21/2020 10:4 7 AM CDT Body Mass Index 36.47 12/21/2020 10:47 AM CDT Plan of Treatment Health Maintenance Due Date Last Done Comments DTAP/TDAP/TD VACCINES (1 - Tdap) 1983 ZOSTER VACCINE (1 of 2) 1983 FIT-DNA Q 3 years 2009 FIT/FOBT Q 1 year 2009 Flex Sig/CT Colonography Q 5 years 2009 RSV VACCINE (60+ or ) (1 - Risk 50-74 years 1-dose series) 2014 Pre-Diabetes and Diabetes Screening 07/14/202307/14, 11/29/2018 COLORECTAL SCREENING 04/17/2024 04/17/2019, 04/17/20 19 Colorectal Cancer Screening 04/17/2024 HEPATITIS B VACCINES (1 of 3 - Risk 3-dose series) 2024 INFLUENZA VACCINE (#1) 2025 07/01/2020 COVID-19 Vaccine ( - season) 2025, 09/06/2020 Medical Devices Implanted Type Area Register In [place]cery Device Identifier Shelf Expiration Date Model / Serial / Lot Mesh Ventralight St 4x6in [id number] - [id number] Implanted:Qty: 1 on 04/21/2017 by Rosales Brooke MD at [facility] Mesh N/A: Abdomen CR [employer] 12/25/2018 [id number] / / [id number] Explanted Type Area Register In [place] Device Identifier Shelf Expiration Date Model / Serial / Lot Port Pwrprt Clearvue Slim 8fr [id number] Implanted:Qty : 1 on 09/19/2019 by Rogerio Fish MD Explanted:Qty : 1 on 02/04/2020 by Khari Naik MD Port Right: Chest Wall CR [employer] [id number] 09/27/2020 [id number] / / [id number] Procedures Procedure Name Priority Date/Time Associated Diagnosis Comments HEMOGLOBIN A1C Routine 07/14/2020 11:32 AM CALL OUT OPERATOR Hyperglycemia Weight loss COLONOSCOPY REPORT 04/17/2019 11 :24 AM CDT from Last 3 Months or Most Recently Relevant to Health Maintenance Results * HEMOGLOBIN A1C (07/14/2020 11:32 AM CALL OUT OPERATOR) HEMOGLOBIN A1C 4.9 <=5.6 % 07/14/2020 12:03 PM [facility] [place] EST. AVG GLUCOSE, A1C 94 mg/dL 07/14/2020 12:03 PM [facility] Blood Venipuncture / Unknown 07/14/2020 11:32 AM CALL OUT OPERATOR 07/14/2020 11:33 AM CALL OUT OPERATOR Narrative [facility] [place] - 07/14/2020 12:03 PM CALL OUT OPERATOR HGB A1C INTERPRETATION NORMAL: <5.7% PRE-DIABETES: 5.7 - 6.4% DIABETES: 6.5% OR GREATER Falsely low A1C measurements can occur when: 1. Anemia and/or hemolytic anemia is present. 2. Hemoglobin variants present. 3. Renal failure. 4. Transfusion of blood product in the last 120 days. We recommend ordering a fructosamine test([id number]) to more accurately assess glycemic status if any of the above conditions are present. us Jamal Zelaya MD CHEMISTRY ORDERABLES Final Resul t [facility]# [id number] [id number] [place] [address] * COLONOSCOPY REPORT (04/17/2019 11:24 AM CDT) Narrative Procedure Note Rick Stoner MD - 04/17/2019 11:24 AM CDT [facility] GI Patient Name: Preston Cope Procedure Date: 04/17/2019 Date of : 1965 Admit Type: Outpatient Age: 53 Attending MD: Rick Stoner , Procedure: Colonoscopy Indications: Screening for malignant neoplasm in the colon Providers: Rick Stoner Referring MD: EMIL Davis Medicines: Propofol per Anesthesia Complications: No immediate complications. Procedure: After I obtained informed consent, the scope was passed under direct vision. Throughout the procedure, the patient's blood pressure, pulse, and oxygen saturations were monitored continuously. The Colonoscope was introduced through the anus and advanced to the terminal ileum, with identification of the appendiceal orifice and IC valve. The colonoscopy was performed without difficulty. The patient tolerated the procedure well. The quality of the bowel preparation was adequate. Estimated Blood Loss: Estimated blood loss was minimal. Findings: A 3 mm polyp was found in the transverse colon. The polyp was flat. The polyp was removed with a cold snare. Resection and retrieval were complete. A 3 mm polyp was found in the transverse colon. The polyp was flat. The polyp was removed with a cold snare. Resection and retrieval were complete. A 3 mm polyp was found in the descending colon. The polyp was flat. The polyp was removed with a cold snare. Resection and retrieval were complete. A 4 mm polyp was found in the sigmoid colon. The polyp was semi-pedunculated. The polyp was removed with a cold snare. Resection and retrieval were complete. Multiple diverticula were found in the sigmoid colon. The exam was otherwise without abnormality. The terminal ileum appeared normal. The retroflexed view of the distal rectum and anal verge was normal and showed no anal or rectal abnormalities. Impression: - One 3 mm polyp in the transverse colon, removed with a cold snare. Resected and retrieved. - One 3 mm polyp in the transverse colon, removed with a cold snare. Resected and retrieved. - One 3 mm polyp in the descending colon, removed with a cold snare. Resected and retrieved. - One 4 mm polyp in the sigmoid colon, removed with a cold snare. Resected and retrieved. - Diverticulosis in the sigmoid colon. - The examination was otherwise normal. - The examined portion of the ileum was normal. - The distal rectum and anal verge are normal on retroflexion view. Recommendation: - Await pathology results. - Repeat colonoscopy in 5 years. Rick Stoner, 04/17/2019 11:24:24 AM Number of Addenda: 0 Note Initiated On: 04/17/2019 10:56 AM Scope Withdrawal Time 0 hours 12 minutes 17 seconds Scope In: 11:03:55 AM Scope Out: 11:21:22 AM [address] [place], [place] Rick Stoner MD GI PROCEDURE ORDERABLES Fin al Result from Last 3 Months or Most Recently Relevant to Health Maintenance Insurance MED PAY RX [employer] Commercial Advance Directives For more information, please contact: [phone] * Full Code (Latest Code Status on File) Date Activated Date Inactivated Comments 12/11/2020 5:45 PM 12/15/2020 4:25 PM * Full Code Date Activated Date Inactivated Comments 04/28/2020 9:14 AM 04/28/2020 2:17 PM * Full Code Date Activated Date Inactivated Comments 02/12/2020 5:07 PM 02/21/2020 11:59 AM * Full Code Date Activated Date Inactivated Comments 01/19/2020 5:22 AM 02/12/2020 4:56 PM * Full Code Date Activated Date Inactivated Comments 12/10/2019 9:31 AM 12/10/2019 4:43 PM Care Teams Carriage Dogger Relationship Specialty Start Date End Date Jaaml Zelaya MD [address] [phone] PCP - General Family Practice 02/07/19
--- OUTSIDE RECORDS SUMMARY | 2025-06-12 13:21 | XMS_ITS | Encounter Summary ---
Author Organization [facility] Address [address] [place] [address] Care Team Providers Care Electro Mechanical Technician Name Role Phone Jamal Zelaya MD Primary Care Provider [phone] Encounter Details Date Type Department Care Team (Late st Contact Info) Description 06/12/2025 Patient Self-Triage [facility] [address] [place] [address] Social History Tobacco Use Types Packs/Day Years Used Date Smoking Tobacco: Former Cigarettes 0.5 5 0 09/12/1981 - 09/12/1986 Smokeless Tobacco: Never Alcohol Use Standard Drinks/Week Comments Not Currently 0 (1 standard drink = 0.6 oz pur e alcohol) Financial Resource Strain Answer Date R ecorded [...] have money to get more. Patient declined Feeling Safe Answer Date Recorded Are you in a relationship wi th someone who hurts you emotionally and/or physically? No 04/03/2025 Food Insecurity Answer Date Recorded Patient needs follow up regardin 03/04/2025 Transportation Needs Answer Date Record ed Patient needs follow up regardin 03/04/2025 Housing Stability Answer Date Recorded Social/Environmental Concerns No concerns Utility Needs Answer Date Recorded Patient needs follow up regardin 03/04/2025 Sex and Gender Information Value Date Recorded Sex Assigned at Not on file Legal Sex Male 4:06 PM COMPUTER TECHNICAL SPECIALIST Gender Identity Not on file Sexual Orientation Not on file documented as of this encounter Plan of Treatment Upcoming Encounters Date Type Department Care Team (Late st Contact Info) Description 07/09/2025 8:00 AM COMPUTER TECHNICAL SPECIALIST Appointment [facility] Ultrasound [place] [address] [place] [phone] Markos Lindsey MD [address] [facility] [address] [place] [address] 11/06/2025 10:40 AM CDT Appointment [facility] Laboratory Services [address] [facility] [address] [place] [address] 11/20/2025 9:00 AM CDT Office Visit [facility]- [facility] [address] [facility] [address] [place] [address] Markos Lindsey MD [address] [facility] [address] [place] [address] 11/20/2025 10:40 AM CDT Office Visit [facility] Cancer and Hematology [place] [address] [place] [address] Woody Wilson MD [address] [facility] [address] [place] [address] 11/27/2025 9:15 AM CDT Appointment [facility] [place] [address] [place] [address] Malcolm Roth II, PA [address] [place] [phone] documented as of this encounter Visit Diagnoses Not on filedocumented in this encounter Care Teams Electro Mechanical Technician Relationship Specialty Start Date End Date Jamal Zelaya MD [address] [place] [phone] PCP - General Family Practice 02/07/19 documented as of this encounter
--- OUTSIDE RECORDS SUMMARY | 2025-06-12 13:21 | XMS_ITS ---
Author Organization [facility] Address [address] [place] [address] Care Team Providers Care Engineering Laboratory Technician Name Role Phone Jamal Zelaya MD Primary Care Provider Active Problems Problem Noted Date Diagnosed Date [...] 11/29/2019 Esophageal varices without bleeding 09/17/2019 Esophagitis, [place] grade C 09/17/2019 Gastric ulcer without hemorrhage [...] with comorbidity 04/04/2017 Pancytopenia due to chemotherapy Current Treatment and Therapy Plans No current plan information found. Past Treatment and Therapy Plans ONCOLOGY TREATMENT Plan Name Start Date Discontinue Date Treatment Medications Discontinue Reason Plan Provider Cycles OP ONC NHL EPOCH + R_EVERY 21 DAYS 09/23/19 20 10/02/2020 [facility] Chemotherapy BuildercycloPHOSphamide (CYTOXAN) IVPBetoposide (VEPESID) vinCRIStine (ONCOVIN) and DOXOrubicin (ADRIAMYCIN)methotrexate PF intraTHEcal syringeriTUXimab-abbs (TRUXIMA) 1 mg/mL IVPBriTUXimab-abbs (TRUXIMA) in NaCl 0.9% 250 mL IVPB Other Woody Wilson MD 6 of 7 cycles completed OP ONC NHL_R-C HOP_EVE RY 21 DAYS X 6 09/12/19 20 09/17/2019 cycloPHOSphamide (CYTOXAN) IVPBDOXOrubicin (ADRIAMYCIN)riTUXimab-abb s (TRUXIMA) 1 mg/mL IVPBriTUXimab-abbs (TRUXIMA) in NaCl 0.9% 250 mL IVPBvinCRIStine (ONCOVIN) IVPB Change in Level of Care Woody Wilson MD Treatment not started Lifetime Dose Tracking * Chemical Lifetime Dose Automatic Entry Manual Entr y doxorubicin 272.406 mg/m2 (764 mg) 272.406 mg/m2 (764 mg) 0 mg/m2 (0 mg) Effective Dose 54.2 mSv 54.2 mSv 0 mSv Total DLP 4,883 DLP 4,883 DLP 0 DLP CTDIvol Max 78.4 mGy 78.4 mGy 0 mGy CTDIvol Min 78.4 mGy 78.4 mGy 0 mGy Resolved Problems Problem Noted Date Diagnosed [...]
--- OUTSIDE RECORDS SUMMARY | 2025-06-12 13:21 | XMS_ITS | Encounter Summary ---
Author Organization [facility] Address 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 Gender Identity Not on file Sexual Orientation Not on file documented as of this encounter Plan of Treatment Upcoming Encounters Date Type Department Care Team (Late st Contact Info) Description 07/09/2025 8:00 AM DIGITAL MARKETING PROGRAM MANAGER Appointment [facility] Ultrasound [place] [address] [place] [phone] Markos Lindsey MD [address] [facility] [address] [place] [phone] 11/06/2025 10:40 AM CDT Appointment [facility] Chub [facility] Laboratory Services [address] [facility] [address] [place] [phone] 11/20/2025 9:00 AM CDT Office Visit [facility] Gastroenterology- Rom [address] [facility] [address] [place] [address] Markos Lindsey MD [address] [facility] [address] [place] [address] 11/20/2025 10:40 AM CDT Office Visit [facility] Cancer and Hematology [place] [address] [facility] [address] [place] [phone] Woody Wilson MD [address] [facility] [address] [place] [address] 11/27/2025 9:15 AM CDT Appointment [facility] [place] [place] [address] Malcolm Roth II, PA [address] [facility] [address] [place] [address] documented as of this encounter Visit Diagnoses Not on filedocumented in this encounter Care Teams Livestock Haulier Relationship Specialty Start Date End Date Jamal Zelaya MD [address] [place] [address] PCP - General Family Practice 02/07/19 documented as of this encounter
--- OUTSIDE RECORDS SUMMARY | 2025-06-12 13:22 | XMS_ITS | Encounter Summary ---
Author Organization [facility] Address [address] [place] [address] Care Team Providers Care Mid Wife Name Role Phone Jamal Zelaya MD Primary Care Provider [phone] Encounter Details Date Type Department Care Team (Latest Contact Info) Description 02/20/2007 Outpatient Historical [facility] Orthopedics- [address] [place] 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 Gender Identity Not on file Sexual Orientation Not on file documented as of this encounter Plan of Treatment Not on file documented as of this encounter Visit Diagnoses Diagnosis Pain in joint, ankle and foot- Primary Traumatic arthropathy, ankle and foot documented in this encounter Additional Health Concerns Infection Onset Date Last Indicated Resolved Time R/O COVID-19 01/18/2020 01/19/2020 01/19/2020 1:08 AM CDT C Diff 01/19/2020 01/19/2020 03/19/2020 8:09 PM CDT R/O COVID-19 12/11/2020 12/11/2020 12/11/2020 9:07 AM CDT R/O GI Pathogen 12/11/2020 12/11/2020 12/12/2020 4 :09 PM CDT documented as of this encounter Care Teams Mid Wife Relationship Specialty Start Date End Date Jamal Zelaya MD [address] [facility] [address] [place] [address] PCP - General Family Practice 02/07/19 documented as of this encounter
--- OUTSIDE RECORDS SUMMARY | 2025-06-12 13:22 | XMS_ITS | Clinical Summary ---
Author Organization [facility] tone Address [address] [place] [address] Care Team Providers Care Retail Event Coordinator Name Role Phone Jamal Zelaya MD Primary Care Provider [phone] Allergies Active Allergy Reactions Criticality Noted Date Comments Acetaminophen Other (See Comments) 06/22/2022 Cirrhosis of liver not due to alcohol Medications lactulose (ENULOSE) 10 gram/15 mL (15 mL) SolutionIndica tions:Cirrhosi s of liver not due to alcohol (CMS/HCC),Seco ndary esophageal varices without bleeding (CMS/HCC) Take 30 mL by mouth 3 times daily. 946 mL 3 4 Active tamsulosin (FLOMAX) 0.4 mg capsuleIndicat ions:Urinary retention Take 1 Capsule (0.4 mg) by mouth daily. 90 Capsule 5 05/22/20 25 Discontinued Active Problems Problem Noted Date Diagnosed Date [...] 01/19/2020 Nodule of left lung 11/29/2019 Esophagitis, [place] grade C 09/17/2019 Esophageal varices without bleeding [...] 02/07/2019 DDD (degenerative disc disease), lumbar 02/08/20 Resolved Problems Problem Noted Date Diagnosed Date [...] Fever 02/29/2020 Pancytopenia due to chemotherapy 2024 Encounters Date Type Department Care Team Description 06/12/2025 Patient Self-Triage [facility] [address] [place] [address] 06/03/2025 External Device Data STL ABSTRACTION Provider, Abstract 05/22/2025 9:15 AM CDT Office Visit [facility] [address] [address] Malcolm Roth II, PA ACP (advance care planning) (Primary Dx); Large B-cell lymphoma (CMS/HCC); Low serum HDL; Vitamin D deficiency; Primary thrombocytopenia (CMS/HCC); Secondary esophageal varices without bleeding (CMS/HCC); Morbid obesity with body mass index of 40.0-49.9 (CMS/HCC); Screening PSA (prostate specific antigen) 05/22/2025 Results Follow-Up [facility] [address] [address] Malcolm Roth II, PA LIPID PANEL, PSA, VITAMIN D 25 HYDROXY 04/29/2025 External Device Data STL ABSTRACTION Provider, Abstract 04/29/2025 External Device Data STL ABSTRACTION Provider, Abstract 04/03/2025 11:46 AM CDT - 04/03/2025 1:[address] [facility] Operating Room [address] [place] [address] Jocelin Hopson MD CYSTOURETHROSCOPY URETERAL STENT REMOVAL 04/03/2025 11:12 AM CDT Anesthesia Event [facility] Operating Room [address] [place] [address] Jacinto Gaspar MD 04/03/2025 8:23 AM CDT - 04/03/2025 2:00 PM CDT Hospital Encounter [facility] 3J Pre-Op [address] [place] [address] Jocelin Hopson MD Ureteral stricture, right Discharge Disposition: Home or Self Care 04/03/2025 Chart Note [facility] [place] [address] Jocelin Hopson MD from Last 3 Months Immunizations Immunization Administration Dates Next Due (ADACEL/BOOSTRIX)(10 YR UP) TDAP VACCINE, 0.5ML, IM 10/07/2021 (PFIZER)(12 YR UP) COVID-19 VACCINE - EMERGENCY USE AUTHORIZATION, MRNA, [id number](PF) 30 MCG/0.3 ML IM SUSP 09/27/2020,09/06/2020 Family History Medical History Relation Name Comments Diabetes Father Ethel Cope Heart Disease Father Ethel Cope Hemochromatosis Father Ethel Cope Liver Disease Father Ethel Cope Tuberculosis Maternal Grandfather No Known Problems Maternal Grandmother Healthy Mother Cleopatra No Known Problems Paternal Grandfather Heart Disease Paternal Grandmother Oxana Cope Hypertension Paternal Grandmother Oxana Cope Colon Cancer Neg Hx Relation Name Status Comments Father Ethel Cope Alive Maternal Grandfather Maternal Grandmother Mother Cleopatra Alive Paternal Grandfather Paternal Grandmother Oxana Cope Sister 1 Alive Sister 2 Alive Social History Tobacco Use Types Packs/Day Years Used Date Smoking Tobacco: Former Cigarettes 0.5 5 0 09/12/1981 - 09/12/1986 Smokeless Tobacco: Never Tobacco Cessation:Counseling Given: No Alcohol Use Standard Drinks/Week Comments Not Currently [...] on file Legal Sex Male 4:06 PM RESIDENT CARE PROVIDER Gender Identity Not on file Sexual Orientation Not on file Last Filed Vital Signs Vital Sign Reading Time Taken Comments Blood Pressure 122/70 05/22/2025 8:32 AM CDT Pulse 95 05/22/2025 8:32 AM CDT Temperature 36.7 C (98 F) 05/22/2025 8:32 AM CDT Respiratory Rate 16 05/22/2025 8:32 AM CDT Oxygen Saturation 95% 05/22/2025 8:32 AM CDT Inhaled Oxygen Concentration - - Weight 159.2 kg (351 lb) 05/22/2025 8:32 AM CDT Height 190.5 cm (6' 3 ) 05/22/2025 8:32 AM CDT Body Mass Index 43.87 05/22/2025 8:32 AM CDT Plan of Treatment Upcoming Encounters Date Type Department Care Team (Late st Contact Info) Description 07/09/2025 8:00 AM RESIDENT CARE PROVIDER Appointment Ade Laz[facility] [place] [address] [place] [address] Markos Lindsey MD [address] [place] [phone] 11/06/2025 10:40 AM CDT Appointment [facility] Services [address] [place] [phone] 11/20/2025 9:00 AM CDT Office Visit [facility] G[facility]- [place] [address] [place] [address] Markos Garnett MD [address] [place] [address] 11/20/2025 10:40 AM CDT Office Visit [facility] [place] [address] [place] [address] Woody Wilson MD [address] [place] [address] 11/27/2025 9:15 AM CDT Appointment [facility] [place] [place] [address] Malcolm Roth II, [place] [address] [place] [address] Health Maintenance Due Date Last Done Comments FIT-DNA Q 3 years 2009 FIT/FOBT Q 1 year 2009 Flex Sig/CT Colonography Q 5 years 2009 RSV VACCINE (60+ or ) (1 - Risk 50-74 years 1-dose series) 2014 Preventative Visit- Commercial 07/31/2024 10/07/2021, 02/07/2019 INFLUENZA VACCINE (#1) 2025 07/01/2020 COVID-19 Vaccine ( season) 2025 09/27/2020, 09/06/2020 ZOSTER VACCINE (1 of 2) 2025 Post poned from 1983 (Patient Refused) HEPATITIS B VACCINES (1 of 3 - Risk 3-dose series) 11/13/2025 Postponed from 2024 (Patient Refused) UPPER GI ENDOSCOPY 02/03/2026 02/03/2025 (P reviously completed), 02/03/2025 COLORECTAL SCREENING 04/20/2027 04/20/2022, 04/20/2022, 04/17/2019, Additional history exists Colorectal Cancer Screening 04/20/2027 Pre-Diabetes and Diabetes Screening 2027 2024, 10/07/2021, 07/14/2020, Additional history exists DTAP/TDAP/TD VACCINES (2 - Td or Tdap) 10/08/2031 10/07/2021 Abdominal Aortic Aneurysm (AAA) Screening Completed 12/24/2024 Medical Devices Implanted Type Area Computer Tech Device Identifier Shelf Expiration Date Model / Serial / Lot Mesh Ventralight St 4x6in [id number] - [id number] Implanted:Qty: 1 on 04/21/2017 by Rosales Brooke MD Mesh N/A: Abdomen CR [employer]ARD[employer] 12/25/2018 [id number] / / [id number] Ligator Band 4 Super 7 [id number] - [id number] Implanted:Qty: 1 on 04/21/2023 by Markos Lindsey MD at [facility] Other N/A: Esophagus [employer] [id number] 02/29/2024 [id number] / / [id number] Description:3 bands implante d Ligator Band 2 Super 7 [id number] - [id number] Implanted:Qty: 1 on 06/12/2023 by Markos Lindsey MD at [facility] Other N/A: Esophagus [employer] PIOTR [id number] 02/23/2024 [id number] / / [id number] Description:4 bands placed i n esophagus Ligator Band 2 Super 7 [id number] - [id number] Implanted:Qty: 1 on 08/01/[address] [facility] Other N/A: [facility] [employer] [facility] [id number] 05/08/2024 [id number] / / [id number] Description:2 bands placed Plate Tib 3.5 Lcp Med Prox Rt 239.954s - [id number] Implanted:Qty: 1 on 10/27/2021 by Luther Ca MD at [facility] Plate Right: Tibia [employer]- DEPUY SYNTHES [id number] 239.954S / / [id number] Screw St 3.5x42mm 204.842 - [id number] Implanted:Qty: 1 on 10/27/2021 by Luther Ca MD at [facility] Screw Right: Tibia [employer]- DEPUY SYNTHES [id number] 204.842 / / Screw St 3.5x44mm 204.844 - [id number] Implanted:Qty: 1 on 10/27/2021 by Luther Ca MD at [facility] Screw Right: Tibia [employer] DEPUY SYN[employer]ES [id number] 204.844 / / Screw St Loc Stdrv 3.5x80mm 212.128 - [id number] Implanted:Qty: 1 on 10/27/2021 by Luther Ca MD at [facility] Screw Right: Tibia [employer] DE[employer]ES [id number] 212.128 / / [id number] 40MAIN-[address] 3.5x90mm 204.890 - [id number] Implanted:Qty: 1 on 10/27/2021 by Luther Ca MD at [facility] Screw Right: Tibia [employer] DE[employer]ES [id number] 204.890 / / [id number] 40MAIN-[address] 3.5x70mm 204.870 - [id number] Implanted:Qty: 1 on 10/27/2021 by Luther Ca MD at [facility] Screw Right: Tibia [employer]- DEPUY SYN[employer]ES [id number] 204.870 / / [id number] 40MAIN-[address] 3.5x90mm 204.890 - [id number] Implanted:Qty: 1 on 10/27/2021 by Luther Ca MD at [facility] Screw Right: Tibia [employer]- DE[employer]ES [id number] 204.890 / / [id number] 40MAIN-[address] Stdrv 3.5x75mm 212.127 - [id number] Implanted:Qty: 1 on 10/27/2021 by Luther Ca MD at [facility] Screw Right: Tibia [employer]- DEPUY [employer]ES [id number] 212.127 / / [id number] 40MAIN-01 Explanted Type Area Computer Tech Device Identifier Shelf Expiration Date Model / Serial / Lot Port Pwrprt Clearvue Slim 8fr [id number]/20/20 Implanted:Qty: 1 on 09/19/2019 by Rogerio Fish MD Explanted:Qty: 1 on 02/04/2020 by Khari Naik MD Port Right: Chest Wall CR [employer] [id number] 09/27/2020 [id number] / / [id number] Stent Contour [id number] - [id number] Implanted:Qty: 1 on 01/02/2025 by Jocelin Hopson MD at [facility] Explanted:Qty: 1 on 04/03/[address] [facility] Stent Right: Ureter [employer] UROLOG[employer]/GRAIN SHOVELER [id number] 11/13/2026 [id number] / / [id number] Description:not in place dur ing procedure. Stent Contour [id number] - [id number] Implanted:Qty: 1 on 03/04/2025 by Jocelin Hopson MD at [facility] Explanted:Qty: 1 on 04/03/2025 by Jocelin Hopson MD at [facility] Stent Right: Ureter [employer] UR[employer]/GRAIN SHOVELER [id number] 11/13/2026 [id number] / / [id number] Wire K Trocar Pt 2.7v227xy 292.20 - [id number] Explanted:Qty: 1 on 10/27/2021 by Luther Ca MD at [facility] Right: Tibia [employer]J- DEPUY SYNTHES 292.20 / / Wire K Trocar Pt 2.9m526mt 292.20 - [id number] Explanted:Qty: 1 on 10/27/2021 by Luther Ca MD at [facility] Right: Tibia J[employer]J- DEPUY SYNTHES 292.20 / / Procedures Procedure Name Priority Date/Time Associated Diagnosis Comments PSA Routine 05/22/2025 9:01 AM CDT Screening PSA (prostate specific antigen) VITAMIN D 25 HYDROXY Routine 05/22/2025 9:01 AM CDT Vitamin D deficiency LIPID PANEL Routine 05/22/2025 9:01 AM CDT Low serum HDL TELEMETRY REPORT 04/08/2025 10:1 6 AM CDT WI CYSTO W/URTROSCOPY&/PYELOSCOPY DX 04/03/2025 11:46 AM CDT Ureteral stricture, right CYSTOURETHROSCOPY URETERAL STENT REMOVAL 04/03/2025 11:46 AM CDT Ureteral stricture, right WI ANES INSERT ENDOTRACHEAL AIRWAY Routine 04/03/2025 11:[address] ABDOMEN PELVIS WO CONTRAST Routine 12/24/2024 1:48 PM CDT Flank pain HEMOGLOBIN A1C Routine 2024 2:30 PM RESIDENT CARE PROVIDER Screening for diabetes mellitus COLONOSCOPY REPORT 04/20/2022 9: 58 AM CDT from Last 3 Months or Most Recently Relevant to Health Maintenance Results * (ABNORMAL) VITAMIN D 25 HYDROXY (05/22/2025 9:01 AM CDT) VITAMIN D, 25 OH, TOTAL 24(L) 30 - 100 ng/mL [facility] Comment: Vitamin D Status 25-OH Vitamin D: Deficiency: <20 ng/mL Insufficiency: 20 - 29 ng/mL Optimal: > or = 30 ng/mL For 25-OH Vitamin D testing on patients on D2-supplementation and patients for whom quantitation of D2 and D3 fractions is required, the Quest[facility]ure[facility](TM) 25-OH VIT D, (D2,D3), LC/MS/MS is recommended: order code 25096 (patients >2yrs). See Note 1 Note 1 For additional information, please refer to http://education.INNJOY Travel/faq/TVL628 (This link is being provided for informational/ educational purposes only.) FASTING:NO FASTING: NO Test Performed at: [facility] [place] [address] Wiley Nelson MD Blood 05/22/2025 9:01 AM CDT 05/22/2025 9:03 AM CDT EMIL Rodriguez II CHEMISTRY ORDERABLES Final Result [facility] [phone] [address] * PSA (05/22/2025 9:01 AM CDT) PSA 2.31 < OR = 4.00 ng/mL [facility] Comment: The total PSA value from this assay system is standardized against the WHO standard. The test result will be approximately 20% lower when compared to the equimolar-standardized total PSA (Terence Larslan). Comparison of serial PSA results should be interpreted with this fact in mind. This test was performed using the Siemens chemiluminescent method. Values obtained from different assay methods cannot be used interchangeably. PSA levels, regardless of value, should not be interpreted as absolute evidence of the presence or absence of disease. FASTING:NO FASTING: NO Test Performed at: [facility] [address] [place] [address] Andrew Raphael Blood 05/22/2025 9:01 AM CDT 05/22/2025 9:03 AM CDT EMIL Rodriguez II CHEMISTRY ORDERABLES Final Result Performing Organization Address City/State/[facility] de Phone Number [facility] [phone] [facility] [address] [place] [address] * LIPID PANEL (05/22/2025 9:01 AM CDT) CHOLESTEROL 139 <200 mg/dL [facility] HDL 44 > OR = 40 mg/dL [facility] TRIGLYCERIDE 95 <150 mg/dL [facility] RR LDL CALCULATED 77 mg/dL (calc) [facility] Comment: Reference range: <100 Desirable range <100 mg/dL for primary prevention; <70 mg/dL for patients with CHD or diabetic patients with > or = 2 CHD risk factors. LDL-C is now calculated using the Sepideh calculation, which is a validated novel method providing better accuracy than the Friedewald equation in the estimation of LDL-C. Niko SS et al. RISHI. 2013;310(19): 9035-0816 (http://education.INNJOY Travel/faq/OBJ465) CHOL/HDL RATIO 3.2 <5.0 (calc) [facility] [employer] NON-HDL CHOLESTEROL 95 <130 mg/dL (calc) [facility] Comment: For patients with diabetes plus 1 major ASCVD risk factor, treating to a non-HDL-C goal of <100 mg/dL (LDL-C of <70 mg/dL) is considered a therapeutic option. FASTING:NO FASTING: NO Test Performed at: [facility] [address] [place] [address] Andrew Raphael Blood 05/22/2025 9:01 AM CDT 05/22/2025 9:03 AM CDT EMIL Rodriguez II CHEMISTRY ORDERABLES Final Result [facility] [phone] [facility] [address] [facility], [place] [address] * TELEMETRY REPORT (04/08/2025 10:16 AM CDT) us Provider Scanning ECG ORDERABLES Final Result * WI ANES INSERT ENDOTRACHEAL AIRWAY (04/03/2025 11:28 AM CDT) Narrative Marlyn Cavanaugh CRNA - 04/03/2025 11:28 AM CDT Marlyn Cavanaugh CRNA 04/03/2025 11:54 AM Airway Date/Time: 04/03/2025 11:28 AM Location: OR Patient Identity Confirmed by: Verbally with patient and armband Staffing Performed: TEE/CAA Authorized by: Jacinto Gaspar MD Performed by: Marlyn Cavanaugh CRNA Indications and Patient Condition: Indications for Airway Management: Anesthesia Sedation Level: general anesthesia Preoxygenated: yes Patient Position: Ramp Mask Difficulty Assessment: 2 - vent by mask + OA or adjuvant +/- NMBA Oral Airway: 100mm Plan to extubate at end of case: Yes Final Airway Details: Final Airway Type: Endotracheal airway ETT Cuffed: Yes Cuff Volume (mL): 8 Technique Used for Successful ETT Placement: Direct laryngoscopy Devices/Methods Used in Placement: Cricoid pressure and intubating stylet Blade Type: curved blade Blade Size: 4 ETT Size (mm): 8.0 Measured from: Teeth ETT to Teeth (cm): 24 Tube secured with: Tape Placement Verified by: auscultation, end tidal CO2 and chest rise Cormack-Lehane Classification: Grade III - view of epiglottis only Number of Attempts at Approach: 1 Additional Procedure Information: atraumatic and dentition unchanged Additional Comments: Lma placed; unable to seat and ventilate appropraitely; 2 hand mask with oral airway - succinylcholine given; Et-tube and suction at bedside. Atraumatic; dentition unchanged; lips and gums intact. Jacinto Gaspar MD PROCEDURE/MINOR SURGICAL ORDERAB LES Final Result * CT ABDOMEN PELVIS WO CONTRAST (12/24/2024 1:48 PM CDT) Anatomical Region Laterality Modality Abdomen Computed Tomogra phy 12/24/2024 1:35 PM CDT Impressions 12/25/2024 9:26 AM CDT IMPRESSION: Please see below. Exam: CT ABDOMEN PELVIS WO CONTRAST Date/Time of Exam: 12/24/2024 1:48 PM REASON FOR EXAM: Flank pain, stone disease suspected. DIAGNOSIS: Flank pain. Technique: CT of the abdomen and pelvis was performed without the administration of intravenous contrast. Findings: Comparison made to the prior dictation performed 09/08/2023. ABDOMEN: There is an obstructing calculus in the distal third of the ureter at the pelvic inlet measuring approximately 0.7 x 0.9 x 1.0 cm in transverse, AP, and craniocaudal dimensions, similar to the prior excretion. There is chronic severe right-sided hydronephrosis and moderate hydroureter. No intrarenal calculi are identified. The ureter distal to the stone is decompressed. A nonobstructing calculus in the inferior left kidney measures up to 0.8 cm in diameter, increased in size since the prior dimension. A smaller adjacent calculus is noted measuring approximately 3 to 4 mm. There is no left-sided hydronephrosis or hydroureter. There are couple tiny calcified granulomas in the lung bases. There is cirrhotic morphology of the liver with evidence of portal hypertension characterized by recanalization of the paraumbilical vein, paraesophageal varices, and splenomegaly. No discrete hepatic lesion is identified on this noncontrast examination. There are some layering small gallstones without evidence of acute cholecystitis. The biliary tree is otherwise remarkable. The adrenal glands and pancreas are within normal limits. The stomach and small bowel loops are normal in appearance. The colon is unremarkable. The appendix is not identified and may be absent. There is a fat-containing left sided periumbilical hernia with some dilated mesenteric vessels, likely related to portal hypertension. There are minimal atherosclerotic changes. There is thoracolumbar spondylosis with mild chronic superior endplate compression deformity of L1 and L5. There is grade 1 anterolisthesis of L5 on S1 in the same bilateral pars defects with intervertebral disc space narrowing and endplate degeneration, similar to the prior examination. Pelvis: There is no free fluid in the pelvis. The bladder and prostate are unremarkable. There is no pathologic inguinal or pelvic adenopathy. The bony pelvis is intact with degenerative changes. IMPRESSION: 1. Chronic obstructing calculus in the distal third of the right ureter at the level of pelvic brim measuring 0.7 x 0.9 x 1.0 cm, grossly unchanged since 09/08/2023. This causes severe chronic right-sided hydronephrosis and moderate right sided hydroureter ureter. 2. Slight interval increase in size of the nonobstructing left inferior renal calculi now measuring up to 0.8 cm. 3. Cirrhotic morphology of the liver with portal hypertension and paraesophageal varices. No definite intramural involvement is identified. There is associated splenomegaly. 4. Cholelithiasis without evidence of acute cholecystitis. 5. Fat-containing left-sided periumbilical hernia, similar to the prior correlation. 6. Additional incidental findings as above. Narrative Procedure Note Rogerio Fish MD - 12/25/2024 IMPRESSION: Please see below. Exam: CT ABDOMEN PELVIS WO CONTRAST Date/Time of Exam: 12/24/2024 1:48 PM REASON FOR EXAM: Flank pain, stone disease suspected. DIAGNOSIS: Flank pain. Technique: CT of the abdomen and pelvis was performed without the administration of intravenous contrast. Findings: Comparison made to the prior dictation performed 09/08/2023. ABDOMEN: There is an obstructing calculus in the distal third of the ureter at the pelvic inlet measuring approximately 0.7 x 0.9 x 1.0 cm in transverse, AP, and craniocaudal dimensions, similar to the prior excretion. There is chronic severe right-sided hydronephrosis and moderate hydroureter. No intrarenal calculi are identified. The ureter distal to the stone is decompressed. A nonobstructing calculus in the inferior left kidney measures up to 0.8 cm in diameter, increased in size since the prior dimension. A smaller adjacent calculus is noted measuring approximately 3 to 4 mm. There is no left-sided hydronephrosis or hydroureter. There are couple tiny calcified granulomas in the lung bases. There is cirrhotic morphology of the liver with evidence of portal hypertension characterized by recanalization of the paraumbilical vein, paraesophageal varices, and splenomegaly. No discrete hepatic lesion is identified on this noncontrast examination. There are some layering small gallstones without evidence of acute cholecystitis. The biliary tree is otherwise remarkable. The adrenal glands and pancreas are within normal limits. The stomach and small bowel loops are normal in appearance. The colon is unremarkable. The appendix is not identified and may be absent. There is a fat-containing left sided periumbilical hernia with some dilated mesenteric vessels, likely related to portal hypertension. There are minimal atherosclerotic changes. There is thoracolumbar spondylosis with mild chronic superior endplate compression deformity of L1 and L5. There is grade 1 anterolisthesis of L5 on S1 in the same bilateral pars defects with intervertebral disc space narrowing and endplate degeneration, similar to the prior examination. Pelvis: There is no free fluid in the pelvis. The bladder and prostate are unremarkable. There is no pathologic inguinal or pelvic adenopathy. The bony pelvis is intact with degenerative changes. IMPRESSION: 1. Chronic obstructing calculus in the distal third of the right ureter at the level of pelvic brim measuring 0.7 x 0.9 x 1.0 cm, grossly unchanged since 09/08/2023. This causes severe chronic right-sided hydronephrosis and moderate right sided hydroureter ureter. 2. Slight interval increase in size of the nonobstructing left inferior renal calculi now measuring up to 0.8 cm. 3. Cirrhotic morphology of the liver with portal hypertension and paraesophageal varices. No definite intramural involvement is identified. There is associated splenomegaly. 4. Cholelithiasis without evidence of acute cholecystitis. 5. Fat-containing left-sided periumbilical hernia, similar to the prior correlation. 6. Additional incidental findings as above. Luther Saravia NP CT ORDERABLES Final Result * HEMOGLOBIN A1C (2024 2:30 PM RESIDENT CARE PROVIDER) HEMOGLOBIN A1C 5.4 <5.7 % of total Hgb [facility] Comment: For the purpose of screening for the presence of diabetes: <5.7% Consistent with the absence of diabetes 5.7-6.4% Consistent with increased risk for diabetes (prediabetes) > or =6.5% Consistent with diabetes This assay result is consistent with a decreased risk of diabetes. Currently, no consensus exists regarding use of hemoglobin A1c for diagnosis of diabetes in children. According to [place] Diabetes Association (ADA) guidelines, hemoglobin A1c <7.0% represents optimal control in non- diabetic patients. Different metrics may apply to specific patient populations. Standards of Medical Care in Diabetes(ADA). ESTIMATED AVERAGE GLUCOSE (MG/DL) 108 mg/dL [facility] ESTIMATED AVERAGE GLUCOSE (MMOL/L) 6.0 mmol/L [facility] Comment: FASTING:NO FASTING: NO Test Performed at: [employer] [facility] [address] [facility] [address] Wiley Nelson MD Blood 2024 2:30 PM RESIDENT CARE PROVIDER 2024 2:32 PM RESIDENT CARE PROVIDER EMIL Rodriguez II CHEMISTRY ORDERABLES Final Result Performing Organization Address City/State/[facility] Co de Phone Number [facility] [phone] [employer] [address] [facility] [place] [address] * COLONOSCOPY REPORT (04/20/2022 9:58 AM CDT) Narrative Procedure Note Markos Lindsey MD - 04/20/2022 9:[address] [facility] GI Patient Name: Ethel Cope Procedure Date: 04/20/2022 Date of : 1965 Admit Type: Outpatient Age: 56 Attending MD: Markos Lindsey , , Procedure: Colonoscopy Indications: High risk colon cancer surveillance: Personal history of multiple (3 or more) adenomas Providers: Markos Lindsey Referring MD: Jamal Zelaya MD Medicines: Monitored Anesthesia Care Complications: No immediate complications. Procedure: After I obtained informed consent, the scope was passed under direct vision. Throughout the procedure, the patient's blood pressure, pulse, and oxygen saturations were monitored continuously. The Colonoscope was introduced through the anus and advanced to the cecum, identified by appendiceal orifice and ileocecal valve. The colonoscopy was performed without difficulty. The patient tolerated the procedure well. The quality of the bowel preparation was evaluated using the BBPS (Lincoln Bowel Preparation Scale) with scores of: Right Colon = 3, Transverse Colon = 3 and Left Colon = 3 (entire mucosa seen well with no residual staining, small fragments of stool or opaque liquid). The total BBPS score equals 9. Estimated Blood Loss: Estimated blood loss was minimal. Findings: A 4 mm polyp was found in the ascending colon. The polyp was sessile. The polyp was removed with a cold snare. Resection and retrieval were complete. The exam was otherwise without abnormality on direct and retroflexion views. Impression: - One 4 mm polyp in the ascending colon, removed with a cold snare. Resected and retrieved. - The examination was otherwise normal on direct and retroflexion views. Recommendation: - Repeat colonoscopy in 5 years for surveillance. - Thank you for the referral. Markos Lindsey, 04/20/2022 9:57:01 AM Number of Addenda: 0 Note Initiated On: 04/20/2022 8:03 AM Scope Withdrawal Time 0 hours 6 minutes 52 seconds Scope In: 8:22:23 AM Scope Out: 8:33:17 AM [address] [place], [place] Markos Lindsey MD GI PROCEDURE ORDERABLES Final Result from Last 3 Months or Most Recently Relevant to Health Maintenance Insurance [employer] * Guarantor: ETHEL COPE Account Type Relation to Patient Date of Phone Billing Address Personal/Family [address] [place] [id number] [employer] Commercial Advance Directives For more information, please contact: [phone] * Full Code (Latest Code Status on File) Date Activated Date Inactivated Comments 05/22/2025 8:43 AM * Full Code Date Activated Date Inactivated Comments 03/04/2025 6:53 AM 03/05/2025 6:00 PM * Full Code Date Activated Date Inactivated Comments 02/03/2025 7:40 AM 02/03/2025 10:52 AM * Full Code Date Activated Date Inactivated Comments 12/15/2023 11:44 AM 12/15/2023 3:28 PM * Full Code Date Activated Date Inactivated Comments 08/01/2023 7:51 AM 08/01/2023 11:28 AM Care Teams Retail Event Coordinator Relationship Specialty Start Date End Date Jamal Zelaya MD [address] [place] [address] PCP - General Family Practice 02/07/19
--- NOTE | 2025-06-12 13:29 | CT_ITS ---
WS: [id number] CT ABDOMEN AND PELVIS NONCONTRAST HISTORY: flank pain, RIGHT, history of lymphoma. TECHNIQUE: Imaging performed through the abdomen and pelvis. Coronal and sagittal reformats are submitted. All CT scans at [facility] use at least one of these dose optimization techniques: automated exposure control; mA and/or kV adjustment per patient size (includes targeted exams where dose is matched to clinical indication); or iterative reconstruction. DLP: 2161.73 mGy.cm COMPARISON: 12/06/2020 Lower thorax: Lung bases are clear. Visualized heart is normal. Small hiatal hernia. Liver: Cirrhotic liver. Enlarged caudate lobe. Gallbladder: Stones layering within the gallbladder. No wall thickening or pericholecystic fluid. Pancreas: Normal size and attenuation. Normal pancreatic duct. No pancreatitis or mass. Spleen: Markedly enlarged spleen measures 23.8 cm in length. Adrenal glands: Normal. No mass. Right kidney: RIGHT kidney is mildly enlarged measuring 14.4 cm in length. Mild perinephric stranding. Dilated renal pelvis and RIGHT ureter. The RIGHT renal dilatation and ureteral dilatation is of increased density. The RIGHT ureter is dilated to the level of the sacrum. There is a 2 to 3 mm ureteral calcification. Distal to this calcification ureter returns to normal size. There is an additional nonobstructing 2 mm calcification lower pole RIGHT kidney. Left kidney: Normal size kidney with no hydronephrosis. Numerous calcifications in the lower pole with the largest measuring 6 mm in diameter. No ureteral dilatation. Aorta: Normal abdominal aorta, no aneurysm or atherosclerosis. Small pericardiac lymph nodes. There are numerous small lymph nodes near the gastrohepatic ligament and extending into the rickey hepatis. There are also numerous small varices surround the distal esophagus. Splenic varices also present. GI tract: No GI tract obstruction. The appendix is not identified. No evidence for appendicitis. Abdominal wall: Ventral abdominal wall hernia at the umbilicus contains fat. Pelvis: No free fluid. Normal distended urinary bladder. Osseous structures: Grade 1 anterolisthesis of L5. Mild concave superior endplate of L1. CT/CT kidney stone 56333 IMPRESSION: 1. Moderate RIGHT hydronephrosis and hydroureter. 2 to 3 mm calcification in t he RIGHT ureter at the level of the sacrum. 2. Increased attenuation in the dilated RIGHT renal pelvis and ureter and leonel l enlargement. The increased attenuation in the central renal pelvis and ureter may be blood or pus. Correlate for pyelonephritis. 3. Marked splenomegaly. Spleen measures 23.8 cm in length. Spleen has increase d in size since 12/06/2020. At that time the spleen measured 20.2 cm in length. I ncrease in size of the spleen may be related to portal hypertension. History of lymphoma was also provided. 4. Cirrhotic liver with changes of portal hypertension. Spleen enlargement may be related to the portal hypertension. 5. Cholelithiasis without acute cholecystitis. 6. Small gastrohepatic and central mesenteric lymph nodes. Lymph nodes can be noted with cirrhosis. 7. Fat-containing umbilical hernia. 8. Grade 1 anterolisthesis of L5.
[2025-06-12] MEDS: ondansetron 2 mg/ML SDV 2 mL 4 MG IVP (13:33)
[2025-06-12] MEDS: HYDROmorphone 0.5 MG/0.5 ML INJ 1 MG IVP (13:35)
--- NOTE | 2025-06-12 13:38 | ED_ITS ---
HPI - Male Genitourinary 2 General: Chief complaint: Urogenital-Male Stated complaint: R Lower side pain Time Seen by Provider: 06/12/25 13:26 Source: patient Mode of arrival: ambulatory Limitations: no limitations History of Present Illness: 59-year-old male states been has a histo ry of kidney stones states he had sudden severe right sided flank pain today while urinating. States pain sharp in nature rates it a 9 out of 10. He denies any fevers denies any vomiting or diarrhea. He denies any worse or improving factors. Feels the same as his previous kidney stones Related Data Home Medications ?Medication ?Instructions ?Recorded ?Confirmed acetaminophen 500 mg tablet 1,000 mg PO PRN 12/06/20 1 08/12/24 (Tylenol Extra Strength) oxycodone 5 mg tablet 5 mg PO Q6H PRN Pain 5 06/12/25 tamsulosin 0.4 mg capsule 0.4 mg PO BEDTIME 06/12/25 1 08/12/24 Previous Rx's ?Medication ?Instructions ?Recorded cephalexin 500 mg tablet 500 mg PO TID 10 days #30 ta bs 06/12/25 hydrocodone 5 mg-acetaminophen 325 1 tab PO Q6H PRN pa in #20 tabs 06/12/25 mg tablet ondansetron 8 mg disintegrating 8 mg PO Q6H #14 tabs 1 08/12/24 tablet polyethylene glycol 3350 17 17 g PO DAILY #510 grams 1 08/12/24 gram/dose oral powder (Miralax) tamsulosin 0.4 mg capsule (Flomax) 0.4 mg PO DAILY #30 caps 06/12/25 Allergies Allergy/AdvReac Type Severity Reaction Status Date / Time No Known Allergies Allergy Verified 03/03/25 12:21 Review of Systems 2 : Reports: flank pain PFSH ED 2 PFSH: Medical History (Updated 06/12/25 @ 16:31 by Samaria Morrow MD) History of recurrent UTI (urinary tract infection) Lymphoma in remission Kidney stones Social History Smoking and tobacco/nicotine status: never used tobacco/nicotine Physical Exam 2 Const: COMMON NORMALS: no acute distress, patient oriented x3 and healthy appearing HENMT: COMMON NORMALS: normocephalic and atraumatic HEAD & SCALP: n ormocephalic and atraumatic Eye: COMMON NORMALS: conjunctivae normal CONJUNCTIVA: Yes conjunctivae normal Neck/C-Spine: COMMON NORMALS: full ROM and supple Chest: COMMONS NORMALS: normal inspection of the chest Resp: COMMON NORMALS: normal respiratory effort Cardio: COMMON NORMALS: regular rate, regular rhythm and No murmurs present (Cardio) RATE: regular rate RHYTHM: regular rhythm GI: COMMON NORMALS: Normal to inspection, nondistended, normoactive bowel sounds present, Soft to palpation, non-tender and no masses PALPATION: Yes Soft to palpation Extremity: COMMON NORMALS: normal to inspection and full ROM Neuro: COMMON NORMALS: patient oriented x3, moves all extremities and no focal motor deficits Psych: COMMON NORMALS: mental status grossly normal, Normal thought process present and cooperative THOUGHT PROCESS: Normal thought process present Skin: COMMON NORMALS: no rashes or lesions noted and no wounds GENERAL SKIN EXAM: no rashes or lesions noted Course 2 Vital Signs: Vital signs: Vital Signs Temperature 97.8 F 06/12/25 13:20 Pulse Rate 76 06/12/25 16:51 Respiratory Rate 18 06/12/25 16:13 Blood Pressure 134/82 06/12/25 16:51 Pulse Oximetry 90 06/12/25 16:51 Oxygen Delivery Me thod Room Air 06/12/25 16:13 MDM - Male Medical Decision Making Patient presents with flank pain patient was found to have a kidney stones 2 mm in nature. Patient has no fever white count here is normal has some nitrite in his urine no white cells in urine. Patient's pain here is resolved after Toradol and Dilaudid. Did speak to urology at [facility] due to the CT findings which I did review they recommended oral antibiotics and follow-up he is to return if he has any fevers or worsening pain I did go over all these with him he understands agrees to plan. Medical Records I reviewed the patient's medical records. Lab Data 06/12/25 13:38 06/12/25 13:38 Radiology Impressions Abdomen/Pelvis CT 06/12/25 13:29 IMPRESSION: 1. Moderate RIGHT hydronephrosis and hydroureter. 2 to 3 mm calcification in the RIGHT ureter at the level of the sacrum. 2. Increased attenuation in the dilated RIGHT renal pelvis and ureter and renal enlargement. The increased attenuation in the central renal pelvis and ureter may be blood or pus. Correlate for pyelonephritis. 3. Marked splenomegaly. Spleen measures 23.8 cm in length. Spleen has increased in size since 12/06/2020. At that time the spleen measured 20.2 cm in length. Increase in size of the spleen may be related to portal hypertension. History of lymphoma was also provided. 4. Cirrhotic liver with changes of portal hypertension. Spleen enlargement may be related to the portal hypertension. 5. Cholelithiasis without acute cholecystitis. 6. Small gastrohepatic and central mesenteric lymph nodes. Lymph nodes can be noted with cirrhosis. 7. Fat-containing umbilical hernia. 8. Grade 1 anterolisthesis of L5. Laboratory Results WBC 5.00 10^3/uL (3.29-11.43) 06/12/25 13:38 RBC 4.99 10^6/uL (3.85-5.65) 06/12/25 13:38 Hgb 14.70 g/dL (11.27-16.99) 06/12/25 13:38 Hct 43.4 % (37-53) 06/12/25 13:38 MCV 87.0 fl (82-101) 06/12/25 13:38 MCH 29.5 pg (27-33) 06/12/25 13:38 MCHC 33.9 g/dL (30-55) 06/12/25 13:38 RDW 15.0 % (12.1-15.1) 06/12/25 13:38 Plt Count 58 10^3/cmm (157-399) L 06/12/25 13:38 MPV 10.6 fL (7.4-10.4) H 06/12/25 13:38 Neut % (Auto) 60.6 % 06/12/25 13:38 Lymph % (Auto) 25.2 % 06/12/25 13:38 [place] % (Auto) 8.8 % 06/12/25 13:38 Eos % (Auto) 4.4 % 06/12/25 13:38 Baso % (Auto) 0.4 % 06/12/25 13:38 Neut # (Auto) 3.03 10^3/uL (1.8-7.7) 06/12/25 13:38 Lymph # (Auto) 1.3 10^3/uL (0.8-4.8) 06/12/25 13:38 [place] # (Auto) 0.4 10^3/uL (0.2-0.9) 06/12/25 13:38 Eos # (Auto) 0.2 10^3/uL (0.0-0.8) 06/12/25 13:38 Baso # (Auto) 0.0 10^3/uL (0.0-0.1) 06/12/25 13:38 Nucleated RBC % (auto) 0 % 06/12/25 13:38 Nucleated RBCs # 0.0 /100WBC 06/12/25 13:38 Sodium 140 mmol/L (136-145) 06/12/25 13:38 Potassium 3.8 mmol/L (3.5-5.1) 06/12/25 13:38 Chloride 110 mmol/L (98-107) H 06/12/25 13:38 Carbon Dioxide 19 mmol/L (22-29) L 06/12/25 13:38 Anion Gap 14.8 (5-19) 06/12/25 13:38 BUN 12 mg/dL (8-23) 06/12/25 13:38 Creatinine 0.8 mg/dL (0.7-1.2) 06/12/25 13:38 GFR Calculation 98.6 mL/min (90-130) 06/12/25 13:38 Glucose 119 mg/dL (65-115) H 06/12/25 13:38 Calculated Osmolality 291 mOsm/kg (285-295) 06/12/25 13:38 Calcium 8.6 mg/dL (8.5-10.5) 06/12/25 13:38 Total Bilirubin 2.0 mg/dL (0.15-1.2) H 06/12/25 13:38 AST 61 U/L (0-40) H 06/12/25 13:38 ALT 36 U/L (0-41) 06/12/25 13:38 Alkaline Phosphatase 149 U/L (40-130) H 06/12/25 13:38 Total Protein 6.6 g/dL (6.6-8.7) 06/12/25 13:38 Albumin 3.8 g/dL (3.5-5.2) 06/12/25 13:38 Globulin 2.8 g/dL (1.3-4.6) 06/12/25 13:38 Lipase 68 U/L (13-60) H 06/12/25 13:38 Urine Color Dark yellow (Yellow) A 06/12/25 14:48 Urine Appearance Clear (CLEAR) 06/12/25 14:48 Urine pH 5.0 (5-7) 06/12/25 14:48 Ur Specific [place] 1.022 (1.005-1.030) 06/12/25 14:48 Urine Protein Negative (Negative) 06/12/25 14:48 Urine Glucose (UA) Negative (Normal) 06/12/25 14:48 Urine Ketones Trace (Negative) 06/12/25 14:48 Urine Blood Trace (Negative) A 06/12/25 14:48 Urine Nitrate Positive (Negative) A 06/12/25 14:48 Urine Bilirubin Negative (Negative) 06/12/25 14:48 Urine Urobilinogen 1.0 mg/dL (Negative) 06/12/25 14:48 Ur Leukocyte Esterase Trace (Negative) A 06/12/25 14:48 Urine RBC 0-2 /hpf (0-2) 06/12/25 14:48 Urine WBC 6-10 /hpf (0-5) 06/12/25 14:48 Ur Squamous Epith Cells 0-5 /hpf (0-5) 06/12/25 14:48 Amorphous Sediment 1+ /hpf 06/12/25 14:48 Urine Bacteria 1+ /hpf (NONE) H 06/12/25 14:48 Hyaline Casts 2.05 /lpf 06/12/25 14:48 All radiology interpretation(s) finalized by discharge Discharge Plan Discharge Patient Disposition: Home Clinical Impression: Ureterolithiasis Condition: Stable Prescriptions: New hydrocodone-acetaminophen 5-325 mg tablet 1 tab PO Q6H PRN (Reason: pain) Qty: 20 0RF ondansetron 8 mg tablet,disintegrating 8 mg PO Q6H Qty: 14 0RF Rx Instructions: Take 1/2-1 tab every 6 hours as needed for nausea and vomiting tamsulosin [Flomax] 0.4 mg capsule 0.4 mg PO DAILY Qty: 30 0RF cephalexin 500 mg tablet 500 mg PO TID 10 Days Qty: 30 0RF polyethylene glycol 3350 [Miralax] 17 gram/dose powder 17 g PO DAILY Qty: 510 0RF Rx Instructions: Take 1 scoop daily while taking pain medications. No Action acetaminophen [Tylenol Extra Strength] 500 mg Tablet 1,000 mg PO PRN tamsulosin 0.4 mg capsule 0.4 mg PO BEDTIME oxycodone 5 mg Tablet 5 mg PO Q6H PRN (Reason: Pain) Discharge Orders: Discharge ED (Routine); Ordered 06/12/25 Ordered By: Samaria Morrow Discharge Diet: Usual diet Discharge Activity: Increase activity as tolerated Patient Instructions: Kidney Stones (ED), Opioid Safety, Pain Management, Patient Portal & Mauro Instructions Activity Restrictions/Additional Instructions: If stone does not pass in the next day or 2 either follow-up with your urologist or come back to the emergency room. Call for appointment with urology. If fever (temp >100.4) develops return to the emergency room immediately, as this is an emergency. Take nausea medication prior to taking pain medications. Thank you for choosing [facility] for your healthcare needs today. You have been screened and evaluated and felt safe for discharge. Health conditions do change or evolve sometimes and as such it is important that you follow up with your Primary Doctor to be re checked, 3-5 days is a general good time frame for follow up. You are always welcome to return to the ED for re assessment if your symptoms are worsening or you have new concerns Print Language: French Coding Level of Care Code ED Excellence Leader for Hai Abreu
[2025-06-12 13:46] LABS: Hematocrit 43.4 % (37-53); Hemoglobin 14.70 g/dL (11.27-16.99); Mean Corpuscular HGB Conc 33.9 g/dL (30-55); Mean Corpuscular Hemoglobin 29.5 pg (27-33); Mean Corpuscular Volume 87.0 fl (82-101); Nucleated Red Blood Cells % 0 %; Platelet Count 58 10^3/cmm (157-399); Red Blood Count 4.99 10^6/uL (3.85-5.65); White Blood Count 5.00 10^3/uL (3.29-11.43)
[2025-06-12 14:03] LABS: Alanine Aminotransferase 36 U/L (0-41); Albumin Level 3.8 g/dL (3.5-5.2); Alkaline Phosphatase 149 U/L (40-130); Anion Gap 14.8 (5-19); Aspartate Amino Transferase 61 U/L (0-40); Blood Urea Nitrogen 12 mg/dL (8-23); Calcium 8.6 mg/dL (8.5-10.5); Carbon Dioxide 19 mmol/L (22-29); Chloride 110 mmol/L (98-107); Globulin 2.8 g/dL (1.3-4.6); Glucose 119 mg/dL (65-115); Lipase 68 U/L (13-60); Osmolality Calculated 291 mOsm/kg (285-295); Potassium 3.8 mmol/L (3.5-5.1); Sodium 140 mmol/L (136-145); Total Protein 6.6 g/dL (6.6-8.7)
[2025-06-12 14:53] LABS: Glucose Urine UA Negative (Normal); Nitrate Urine Positive (Negative); Specific Gravity, Urine 1.022 (1.005-1.030)
[2025-06-12 14:58] LABS: Add Urine Microscopic? YES
[2025-06-12 15:05] VITALS: BP 136/84; PULSE 60; RESP 18; O2SAT 93
[2025-06-12 15:12] LABS: UA Slide Review UA Slide Review Perf
[2025-06-12] MEDS: cefTRIAXone 1,000 mg SDV 1000 MG IVP (16:12)
[2025-06-12 16:13] VITALS: BP 115/70; PULSE 68; RESP 18; O2SAT 92
[2025-06-12 16:51] VITALS: BP 134/82; PULSE 76; O2SAT 90
== END 2025-06-12 16:53 | disposition home or self-care (01) ==
PROVIDERS: Emergency Provider Emergency Medicine
DX: N20.1 Calculus of ureter (principal); Z87.442 Personal history of urinary calculi
CPT/HCPCS: 74176; 80053; 81001; 83690; 85025; 96374; 96375; 99285; J0696; J1171; J1885; J2405; J7030